=== PATIENT | female | born 2000 | race Hispanic/Latino ===

== ENCOUNTER 2020-07-16 13:57 | Emergency (ER) | payer MEDICAID | END 2020-07-16 15:11 | disposition left against medical advice (07) | LOC: EDH 13:57 | DX: R07.89 Other chest pain (principal); R55 Syncope and collapse | CPT/HCPCS: 93005 ==

== ENCOUNTER 2020-07-18 10:17 | Emergency (ER) | payer MEDICAID ==
[2020-07-18 11:17] LABS: BASOPHILS % (AUTO) 0.5 % (0.0-5.0); EOSINOPHILS % (AUTO) 1.9 % (0.0-8.0); HEMATOCRIT 39.3 % (36-48); LYMPHOCYTES % (AUTO) 34.9 % (21.0-51.0); MEAN CORPUSCULAR HEMOGLOBIN 30.3 pg (27.0-33.0); MEAN CORPUSCULAR HGB CONC 34.4 g/dL (32.0-36.0); MEAN CORPUSCULAR VOLUME 88.1 fL (80-100); MONOCYTES % (AUTO) 5.8 % (3.0-13.0); NEUTROPHILS % (AUTO) 56.7 % (40.0-77.0); PLATELET COUNT (AUTO) 211 K/uL (130-400); RED BLOOD CELL COUNT(AUTO) 4.46 MIL/uL (4.00-5.50); RED CELL DISTRIBUTION WIDTH 11.8 % (11.0-15.5); WHITE BLOOD COUNT (AUTO) 6.4 K/uL (4.8-10.8)
[2020-07-18 11:25] LABS: CREATININE 0.7 mg/dL (0.5-1.5); POTASSIUM 3.5 mmol/L (3.5-5.1)
[2020-07-18 11:28] LABS: AMPHET/METH SCREEN,URINE NEGATIVE (NEGATIVE); BARBITURATE SCREEN, URINE NEGATIVE (NEGATIVE); BENZODIAZEPINES SCREEN,URINE NEGATIVE (NEGATIVE); CANNABINOID SCREEN,URINE NEGATIVE (NEGATIVE); COCAINE SCREEN,URINE NEGATIVE (NEGATIVE); OPIATE SCREEN,URINE NEGATIVE (NEGATIVE); PHENCYCLIDINE SCREEN,URINE NEGATIVE (NEGATIVE)
[2020-07-18 11:29] LABS: ALBUMIN 4.3 g/dL (3.5-5.0); BILIRUBIN,TOTAL 0.7 mg/dL (0.2-1.0)
[2020-07-18 11:48] LABS: INR 0.99 (0.85-1.15); PARTIAL THROMBOPLASTIN TIME 26.1 SEC (26.3-35.5); PROTHROMBIN TIME 10.7 SEC (9.6-11.6)
== END 2020-07-18 12:33 | disposition home or self-care (01) ==
LOC: EDH 10:17
DX: R07.89 Other chest pain (principal); K21.9 Gastro-esophageal reflux disease without esophagitis; R10.10 Upper abdominal pain, unspecified; R13.10 Dysphagia, unspecified; R11.0 Nausea
CPT/HCPCS: 36415; 71045; 74240; 80053; 80305; 82550; 84484; 85025; 85610; 85730; 93005

== ENCOUNTER → 2020-07-18 | Outpatient (CLI) | payer MEDICAID | END | disposition home or self-care (01) | LOC: RAH 08:44 → EDUNIT# 09:00 | PROVIDERS: ATTEND Internal Medicine | DX: K21.9 Gastro-esophageal reflux disease without esophagitis (principal); R13.10 Dysphagia, unspecified | CPT/HCPCS: 74240 ==

== ENCOUNTER 2020-07-23 18:17 | Emergency (ER) | payer MEDICAID ==
[2020-07-23 18:56] LABS: BASOPHILS % (AUTO) 0.4 % (0.0-5.0); EOSINOPHILS % (AUTO) 2.3 % (0.0-8.0); HEMATOCRIT 39.6 % (36-48); LYMPHOCYTES % (AUTO) 37.2 % (21.0-51.0); MEAN CORPUSCULAR HEMOGLOBIN 29.9 pg (27.0-33.0); MEAN CORPUSCULAR HGB CONC 33.6 g/dL (32.0-36.0); MONOCYTES % (AUTO) 6.6 % (3.0-13.0); NEUTROPHILS % (AUTO) 53.4 % (40.0-77.0); PLATELET COUNT (AUTO) 207 K/uL (130-400); RED BLOOD CELL COUNT(AUTO) 4.45 MIL/uL (4.00-5.50); RED CELL DISTRIBUTION WIDTH 11.7 % (11.0-15.5); WHITE BLOOD COUNT (AUTO) 7.7 K/uL (4.8-10.8)
[2020-07-23 19:17] LABS: CREATININE 0.7 mg/dL (0.5-1.5); POTASSIUM 3.4 mmol/L (3.5-5.1)
[2020-07-23 19:19] LABS: APPEARANCE,URINE Clear (CLEAR); BILIRUBIN,URINE Negative (NEGATIVE); COLOR,URINE Yellow (YELLOW); GLUCOSE, URINE (UA) Negative (NEGATIVE); KETONES,URINE 15 mg/dL (NEGATIVE); LEUKOCYTE ESTERASE ,URINE Trace (NEGATIVE); NITRATE,URINE Negative (NEGATIVE); OCCULT BLOOD,URINE Trace (NEGATIVE); PROTEIN,URINE Negative (NEGATIVE); UROBILINOGEN,URINE 0.2 mg/dL (0.2-1.0)
[2020-07-23 19:21] LABS: ALBUMIN 4.4 g/dL (3.5-5.0); BILIRUBIN,TOTAL 1.2 mg/dL (0.2-1.0); TOTAL PROTEIN, SERUM 8.4 g/dL (6.0-8.3)
[2020-07-23 19:45] LABS: BACTERIA,URINE Few /HPF (None Seen); RBC,URINE None Seen /HPF (0-1); SQUAMOUS EPITHELIAL CELL,UR Rare /HPF (0-2); WBC,URINE 0-1 /HPF (0-1)
[2020-07-23] MEDS ORDERED: ONDANSETRON HCL 4 MG/2 ML VIAL ONE (19:45)
[2020-07-23 19:46] LABS: AMORPHOUS SEDIMENT,UR Few /LPF (None Seen)
[2020-07-23] MEDS ORDERED: MORPHINE SULFATE 2 MG/ML 1ML SYG ONE (19:46)
[2020-07-23] MEDS ORDERED: DIATR MEGLU/DIATRIZOATE SODIUM 30 ML BOTTLE ONE (19:52)
[2020-07-23 20:00] LABS: INR 1.03 (0.85-1.15); PARTIAL THROMBOPLASTIN TIME 26.4 SEC (26.3-35.5); PROTHROMBIN TIME 11.1 SEC (9.6-11.6)
== END 2020-07-23 22:31 | disposition home or self-care (01) ==
LOC: EDH 18:17
DX: R07.89 Other chest pain (principal)
CPT/HCPCS: 36415; 71045; 71250; 74150; 80053; 81001; 81025; 82550; 84484; 85025; 85610; 85730; 93005; 96374; 99285; J2405; Q9963

== ENCOUNTER 2020-08-30 16:34 | Emergency (ER) | payer MEDICAID ==
[2020-08-30] MEDS ORDERED: ONDANSETRON ODT 4 MG TAB ONE (17:09)
[2020-08-30] MEDS ORDERED: LIDOCAINE HCL 2% VISCOUS 15 ML UDCUP ONE (18:44)
[2020-08-30] MEDS ORDERED: MAG HYDROX/AL HYDROX/SIMETH ES 30 ML SUSP UDCUP ONE (18:45)
[2020-08-30] MEDS ORDERED: PANTOPRAZOLE SODIUM 40 MG TABLET.DR ONE (18:45)
[2020-08-30 19:16] LABS: CREATININE 0.7 mg/dL (0.5-1.5); CRP QUANTITATIVE 2.2 mg/L (0.00-9.0); POTASSIUM 3.6 mmol/L (3.5-5.1)
[2020-08-30 19:30] LABS: BASOPHILS % (AUTO) 0.5 % (0.0-5.0); EOSINOPHILS % (AUTO) 2.5 % (0.0-8.0); HEMATOCRIT 40.8 % (36-48); LYMPHOCYTES % (AUTO) 37.9 % (21.0-51.0); MEAN CORPUSCULAR HEMOGLOBIN 29.9 pg (27.0-33.0); MEAN CORPUSCULAR HGB CONC 33.3 g/dL (32.0-36.0); MEAN CORPUSCULAR VOLUME 89.7 fL (80-100); MONOCYTES % (AUTO) 5.9 % (3.0-13.0); PLATELET COUNT (AUTO) 193 K/uL (130-400); RED BLOOD CELL COUNT(AUTO) 4.55 MIL/uL (4.00-5.50); WHITE BLOOD COUNT (AUTO) 6.4 K/uL (4.8-10.8)
== END 2020-08-30 19:53 | disposition home or self-care (01) ==
LOC: EDH 16:34
DX: K21.00 Gastro-esophageal reflux disease with esophagitis, without bleeding (principal); M25.511 Pain in right shoulder; R07.89 Other chest pain; J45.909 Unspecified asthma, uncomplicated; Z98.890 Other specified postprocedural states
CPT/HCPCS: 36415; 71045; 72125; 73030; 74018; 80048; 81025; 84484; 85025; 86140; 93005

== ENCOUNTER 2020-10-07 08:51 | Emergency (ER) | payer MEDICAID ==
[2020-10-07 09:18] LABS: APPEARANCE,URINE Clear (CLEAR); BILIRUBIN,URINE Negative (NEGATIVE); COLOR,URINE Yellow (YELLOW); GLUCOSE, URINE (UA) Negative (NEGATIVE); KETONES,URINE Negative (NEGATIVE); LEUKOCYTE ESTERASE ,URINE Negative (NEGATIVE); NITRATE,URINE Negative (NEGATIVE); OCCULT BLOOD,URINE Negative (NEGATIVE); PROTEIN,URINE Negative (NEGATIVE); UROBILINOGEN,URINE 0.2 mg/dL (0.2-1.0)
[2020-10-07 09:23] LABS: HCG,QUAL RESULT NEGATIVE (NEGATIVE)
[2020-10-07] MEDS ORDERED: METOCLOPRAMIDE 10 MG/2 ML VIAL ONE (09:34)
[2020-10-07] MEDS ORDERED: DiphenhydrAMINE HCL 50 MG/ML VIAL ONE (09:35)
[2020-10-07] MEDS ORDERED: SODIUM CHLORIDE 0.9% 1000ML 1,000 ML IV ONE (09:37)
[2020-10-07 09:41] LABS: BASOPHILS % (AUTO) 0.6 % (0.0-5.0); EOSINOPHILS % (AUTO) 4.1 % (0.0-8.0); HEMATOCRIT 41.5 % (36-48); LYMPHOCYTES % (AUTO) 41.4 % (21.0-51.0); MEAN CORPUSCULAR HEMOGLOBIN 30.1 pg (27.0-33.0); MEAN CORPUSCULAR VOLUME 88.5 fL (80-100); MONOCYTES % (AUTO) 7.8 % (3.0-13.0); NEUTROPHILS % (AUTO) 45.9 % (40.0-77.0); PLATELET COUNT (AUTO) 198 K/uL (130-400); RED BLOOD CELL COUNT(AUTO) 4.69 MIL/uL (4.00-5.50); RED CELL DISTRIBUTION WIDTH 11.9 % (11.0-15.5); WHITE BLOOD COUNT (AUTO) 5.4 K/uL (4.8-10.8)
== END 2020-10-07 11:47 | disposition home or self-care (01) ==
LOC: EDH 08:51
DX: R42 Dizziness and giddiness (principal); R51.9 Headache, unspecified; J45.909 Unspecified asthma, uncomplicated; Z98.890 Other specified postprocedural states
CPT/HCPCS: 36415; 70450; 81003; 81025; 85025; 96360; 96361; 99284; J1200; J2765; J7030

== ENCOUNTER 2020-11-21 21:12 | Emergency (ER) | payer MEDICAID | END 2020-11-21 22:07 | disposition home or self-care (01) | LOC: EDH 21:12 | DX: T17.208A Unspecified foreign body in pharynx causing other injury, initial encounter (principal); J45.909 Unspecified asthma, uncomplicated; Z98.890 Other specified postprocedural states; X58.XXXA Exposure to other specified factors, initial encounter; Y93.89 Activity, other specified; Y92.89 Other specified places as the place of occurrence of the external cause; Y99.8 Other external cause status | CPT/HCPCS: 99281 ==

== ENCOUNTER 2021-01-05 14:42 | Emergency (ER) | payer MEDICAID ==
[2021-01-05 15:19] LABS: BASOPHILS % (AUTO) 0.4 % (0.0-5.0); HEMATOCRIT 36.7 % (36-48); LYMPHOCYTES % (AUTO) 33.5 % (21.0-51.0); MEAN CORPUSCULAR HEMOGLOBIN 29.5 pg (27.0-33.0); MEAN CORPUSCULAR HGB CONC 33.2 g/dL (32.0-36.0); MEAN CORPUSCULAR VOLUME 88.9 fL (80-100); MONOCYTES % (AUTO) 7.1 % (3.0-13.0); NEUTROPHILS % (AUTO) 55.9 % (40.0-77.0); PLATELET COUNT (AUTO) 232 K/uL (130-400); RED BLOOD CELL COUNT(AUTO) 4.13 MIL/uL (4.00-5.50); WHITE BLOOD COUNT (AUTO) 8.4 K/uL (4.8-10.8)
[2021-01-05] MEDS ORDERED: LORAZEPAM 1 MG TABLET ONE (15:39)
[2021-01-05 15:40] LABS: CREATININE 0.7 mg/dL (0.5-1.5); POTASSIUM 3.4 mmol/L (3.5-5.1)
[2021-01-05] MEDS ORDERED: DIAZEPAM 5 MG TABLET ONE (15:43)
[2021-01-05 15:54] LABS: ALBUMIN 3.9 g/dL (3.5-5.0); BILIRUBIN,TOTAL 0.6 mg/dL (0.2-1.0); TOTAL PROTEIN, SERUM 7.5 g/dL (6.0-8.3)
[2021-01-05 16:59] LABS: APPEARANCE,URINE Clear (CLEAR); BILIRUBIN,URINE Negative (NEGATIVE); COLOR,URINE Yellow (YELLOW); GLUCOSE, URINE (UA) Negative (NEGATIVE); KETONES,URINE Negative (NEGATIVE); LEUKOCYTE ESTERASE ,URINE Negative (NEGATIVE); NITRATE,URINE Negative (NEGATIVE); OCCULT BLOOD,URINE Negative (NEGATIVE); PROTEIN,URINE Negative (NEGATIVE); UROBILINOGEN,URINE 0.2 mg/dL (0.2-1.0)
[2021-01-05 17:02] LABS: HCG,QUAL RESULT NEGATIVE (NEGATIVE)
== END 2021-01-05 17:42 | disposition home or self-care (01) ==
LOC: EDH 14:42
DX: F41.1 Generalized anxiety disorder (principal); F41.0 Panic disorder [episodic paroxysmal anxiety]; R42 Dizziness and giddiness; J45.909 Unspecified asthma, uncomplicated
CPT/HCPCS: 36415; 80053; 81003; 81025; 84702; 85025; 93005

== ENCOUNTER 2021-01-16 08:04 | Emergency (ER) | payer MEDICAID ==
[2021-01-16 08:43] LABS: BASOPHILS % (AUTO) 0.4 % (0.0-5.0); EOSINOPHILS % (AUTO) 3.1 % (0.0-8.0); HEMATOCRIT 37.4 % (36-48); MEAN CORPUSCULAR HEMOGLOBIN 30.2 pg (27.0-33.0); MEAN CORPUSCULAR HGB CONC 33.2 g/dL (32.0-36.0); MONOCYTES % (AUTO) 7.8 % (3.0-13.0); NEUTROPHILS % (AUTO) 56.5 % (40.0-77.0); PLATELET COUNT (AUTO) 185 K/uL (130-400); RED BLOOD CELL COUNT(AUTO) 4.11 MIL/uL (4.00-5.50); WHITE BLOOD COUNT (AUTO) 5.5 K/uL (4.8-10.8)
[2021-01-16 08:53] LABS: CREATININE 0.6 mg/dL (0.5-1.5); POTASSIUM 3.7 mmol/L (3.5-5.1)
[2021-01-16 08:53] LABS: APPEARANCE,URINE Clear (CLEAR); BILIRUBIN,URINE Negative (NEGATIVE); COLOR,URINE Yellow (YELLOW); GLUCOSE, URINE (UA) Negative (NEGATIVE); KETONES,URINE Negative (NEGATIVE); LEUKOCYTE ESTERASE ,URINE Trace (NEGATIVE); NITRATE,URINE Negative (NEGATIVE); OCCULT BLOOD,URINE Negative (NEGATIVE); PH,URINE 6.5 (5.0-8.0); PROTEIN,URINE Negative (NEGATIVE); UROBILINOGEN,URINE 0.2 mg/dL (0.2-1.0)
[2021-01-16 08:57] LABS: HCG,QUAL RESULT NEGATIVE (NEGATIVE)
[2021-01-16 08:59] LABS: BACTERIA,URINE Rare /HPF (None Seen); RBC,URINE 0-1 /HPF (0-1); SQUAMOUS EPITHELIAL CELL,UR Few /HPF (0-2); WBC,URINE 0-1 /HPF (0-1)
[2021-01-16 09:32] LABS: ALBUMIN 3.9 g/dL (3.5-5.0); BILIRUBIN,DIRECT 0.1 mg/dL (0.0-0.3); BILIRUBIN,TOTAL 0.8 mg/dL (0.2-1.0); TOTAL PROTEIN, SERUM 7.6 g/dL (6.0-8.3)
[2021-01-16] MEDS ORDERED: ACETAMINOPHEN 325 MG TAB ONE (09:33)
[2021-01-16] MEDS ORDERED: SODIUM CHLORIDE 0.9% 500ML 500 ML IV ONE (09:34)
[2021-01-16 10:03] LABS: AMPHET/METH SCREEN,URINE NEGATIVE (NEGATIVE); BARBITURATE SCREEN, URINE NEGATIVE (NEGATIVE); BENZODIAZEPINES SCREEN,URINE NEGATIVE (NEGATIVE); CANNABINOID SCREEN,URINE NEGATIVE (NEGATIVE); COCAINE SCREEN,URINE NEGATIVE (NEGATIVE); OPIATE SCREEN,URINE NEGATIVE (NEGATIVE); PHENCYCLIDINE SCREEN,URINE NEGATIVE (NEGATIVE)
== END 2021-01-16 10:56 | disposition home or self-care (01) ==
LOC: EDH 08:04
DX: R42 Dizziness and giddiness (principal); R00.2 Palpitations; R53.1 Weakness; J45.909 Unspecified asthma, uncomplicated; F41.9 Anxiety disorder, unspecified; Z98.890 Other specified postprocedural states; Z79.899 Other long term (current) drug therapy
CPT/HCPCS: 36415; 80048; 80076; 80305; 81001; 81025; 84443; 85025; 93005; 96360; 99284; J7040

== ENCOUNTER 2021-01-28 19:22 | Emergency (ER) | payer MEDICAID ==
[~2021-01-28] VITALS: Ht 160 cm; Wt 69.4 kg
[2021-01-28 20:23] VITALS: BP 101/76
== END 2021-01-28 21:27 | disposition home or self-care (01) ==
LOC: EDH 19:22
DX: H92.02 Otalgia, left ear (principal); N89.8 Other specified noninflammatory disorders of vagina; L29.2 Pruritus vulvae; R51.9 Headache, unspecified; R42 Dizziness and giddiness
CPT/HCPCS: 99281

== ENCOUNTER 2021-01-30 21:34 | Emergency (ER) | payer MEDICAID ==
[~2021-01-30] VITALS: Ht 157.5 cm; Wt 74.8 kg
[2021-01-30] MEDS ORDERED: FAMOTIDINE 20MG TAB 20 MG TAB PO SCH (22:30)
[2021-01-30] MEDS ORDERED: PANTOPRAZOLE SODIUM 40 MG TABLET.DR PO SCH (22:30)
[2021-01-30] MEDS ORDERED: LIDOCAINE HCL 2% VISCOUS 15 ML UDCUP PO SCH (22:30)
[2021-01-30] MEDS ORDERED: MAG HYDROX/AL HYDROX/SIMETH ES 30 ML SUSP UDCUP PO SCH (22:30)
[2021-01-30] MEDS ORDERED: DICY20TA2 PO (22:36)
[2021-01-30] MEDS ORDERED: METO-296 PO (22:36)
[2021-01-30] MEDS ORDERED: PANT40TA PO (22:36)
[2021-01-30] MEDS ORDERED: ONDA4TAB10 PO (22:36)
[2021-01-30 23:05] VITALS: BP 117/69
[2021-01-30] MEDS: DICYCLOMINE HCL 10 MG/ML 2ML AMP IM SCH ×2 (23:26→23:27)
[2021-01-31] MEDS ORDERED: ONDA4TAB10 PO (07:44)
== END 2021-01-30 23:33 | disposition home or self-care (01) ==
LOC: EDH 21:34
DX: K21.9 Gastro-esophageal reflux disease without esophagitis (principal); K22.4 Dyskinesia of esophagus; Z79.899 Other long term (current) drug therapy
CPT/HCPCS: 96372; 99284; J0500

== ENCOUNTER 2021-01-31 04:55 | Emergency (ER) | payer MEDICAID ==
[~2021-01-31] VITALS: Ht 160 cm; Wt 69.4 kg
[~2021-01-31 04:55] MED LIST: DICY20TA2 PO; METO-296 PO; ONDA4TAB10 PO; PANT40TA PO
[2021-01-31 04:58] VITALS: BP 103/68
[2021-01-31] MEDS: SODIUM CHLORIDE 0.9% 1000ML 1,000 ML IV SCH ×2 (05:24→06:34)
[2021-01-31] MEDS: ONDANSETRON HCL 4 MG/2 ML VIAL IVP SCH ×2 (05:25→06:34)
[2021-01-31] MEDS: METOCLOPRAMIDE 10 MG/2 ML VIAL IVP SCH ×2 (05:25→06:35)
[2021-01-31] MEDS: KETOROLAC 30MG VIAL (30MG/ML) IVP SCH ×4 (05:25→06:39)
[2021-01-31] MEDS: PANTOPRAZOLE 40 MG/VIAL IVP SCH ×2 (05:25→06:34)
[2021-01-31] MEDS ORDERED: DiphenhydrAMINE HCL 50 MG/ML VIAL IV SCH (05:30)
[2021-01-31 05:36] LABS: APPEARANCE,URINE Clear (CLEAR); BILIRUBIN,URINE Negative (NEGATIVE); COLOR,URINE Yellow (YELLOW); GLUCOSE, URINE (UA) Negative (NEGATIVE); KETONES,URINE Negative (NEGATIVE); LEUKOCYTE ESTERASE ,URINE Trace (NEGATIVE); NITRATE,URINE Negative (NEGATIVE); OCCULT BLOOD,URINE Large (NEGATIVE); PROTEIN,URINE Negative (NEGATIVE); UROBILINOGEN,URINE 0.2 mg/dL (0.2-1.0)
[2021-01-31 05:39] LABS: HCG,QUAL RESULT NEGATIVE (NEGATIVE)
[2021-01-31 05:46] LABS: BASOPHILS % (AUTO) 0.2 % (0.0-5.0); EOSINOPHILS % (AUTO) 0.6 % (0.0-8.0); LYMPHOCYTES % (AUTO) 20.6 % (21.0-51.0); MEAN CORPUSCULAR HEMOGLOBIN 30.5 pg (27.0-33.0); MEAN CORPUSCULAR HGB CONC 34.1 g/dL (32.0-36.0); MEAN CORPUSCULAR VOLUME 89.6 fL (80-100); MONOCYTES % (AUTO) 5.7 % (3.0-13.0); NEUTROPHILS % (AUTO) 72.7 % (40.0-77.0); PLATELET COUNT (AUTO) 222 K/uL (130-400); RED BLOOD CELL COUNT(AUTO) 4.13 MIL/uL (4.00-5.50); RED CELL DISTRIBUTION WIDTH 11.9 % (11.0-15.5); WHITE BLOOD COUNT (AUTO) 8.1 K/uL (4.8-10.8)
[2021-01-31 05:55] LABS: CREATININE 0.6 mg/dL (0.5-1.5); POTASSIUM 3.6 mmol/L (3.5-5.1)
[2021-01-31 05:59] LABS: BILIRUBIN,TOTAL 0.5 mg/dL (0.2-1.0); TOTAL PROTEIN, SERUM 7.8 g/dL (6.0-8.3)
[2021-01-31 06:41] VITALS: BP 124/76
[2021-01-31 07:06] LABS: BACTERIA,URINE Few /HPF (None Seen); SQUAMOUS EPITHELIAL CELL,UR 0-2 /HPF (0-2); WBC,URINE 0-1 /HPF (0-1)
[2021-01-31] MEDS ORDERED: ONDA4TAB10 PO (07:44)
[2021-01-31 08:05] VITALS: BP 106/64
== END 2021-01-31 08:40 | disposition home or self-care (01) ==
LOC: EDH 04:55
DX: R51.9 Headache, unspecified (principal); R11.2 Nausea with vomiting, unspecified; R00.2 Palpitations; Z79.899 Other long term (current) drug therapy
CPT/HCPCS: 36415; 80053; 81001; 81025; 83690; 85025; 96361; 96374; 96375; 99284; C9113; J1200; J1885; J2405; J2765; J7030; 96365

== ENCOUNTER 2021-03-31 02:49 | Emergency (ER) | payer MEDICAID ==
[~2021-03-31] VITALS: Ht 154.9 cm; Wt 62.6 kg
[2021-03-31 02:51] VITALS: BP 122/66
[2021-03-31 03:07] LABS: APPEARANCE,URINE Turbid (CLEAR); BILIRUBIN,URINE Negative (NEGATIVE); COLOR,URINE Yellow (YELLOW); GLUCOSE, URINE (UA) Negative (NEGATIVE); KETONES,URINE >=80 mg/dL (NEGATIVE); LEUKOCYTE ESTERASE ,URINE Large (NEGATIVE); NITRATE,URINE Negative (NEGATIVE); OCCULT BLOOD,URINE Large (NEGATIVE); PROTEIN,URINE POS 1+ mg/dL (NEGATIVE)
[2021-03-31 03:14] LABS: HCG,QUAL RESULT NEGATIVE (NEGATIVE)
[2021-03-31 03:16] LABS: BACTERIA,URINE Rare /HPF (None Seen); SQUAMOUS EPITHELIAL CELL,UR Rare /HPF (0-2); WBC,URINE 51-100 /HPF (0-1)
[2021-03-31] MEDS ORDERED: CEFTRIAXONE 1G VIAL IM STA (03:16)
[2021-03-31] MEDS ORDERED: LACTATED RINGERS 1000ML 1,000 ML IV ONE (03:30)
[2021-03-31] MEDS ORDERED: PHENAZOPYRIDINE HCL 200 MG TABLET PO ONE (03:30)
[2021-03-31] MEDS ORDERED: LIDOCAINE HCL-MPF 1% 2ML VIAL ONE (04:20)
[2021-03-31] MEDS ORDERED: CEFTRIAXONE 1G VIAL ONE (04:20)
[2021-03-31] MEDS ORDERED: CEFU500T67 PO (05:44)
[2021-03-31 05:55] VITALS: BP 120/60
== END 2021-03-31 05:56 | disposition home or self-care (01) ==
LOC: EDH 02:49
DX: N39.0 Urinary tract infection, site not specified (principal); F41.9 Anxiety disorder, unspecified; Z79.899 Other long term (current) drug therapy; Z98.890 Other specified postprocedural states
CPT/HCPCS: 81001; 81025; 87088; 96372; 99283; J0696; J3490

== ENCOUNTER 2021-06-15 01:35 | Emergency (ER) | payer MEDICAID ==
[~2021-06-15] VITALS: Ht 154.9 cm; Wt 56.2 kg
[~2021-06-15 01:35] MED LIST changes: +CEFU500T67 PO
[2021-06-15 01:57] LABS: APPEARANCE,URINE Clear (CLEAR); BILIRUBIN,URINE Negative (NEGATIVE); COLOR,URINE Yellow (YELLOW); GLUCOSE, URINE (UA) Negative (NEGATIVE); KETONES,URINE Negative (NEGATIVE); LEUKOCYTE ESTERASE ,URINE Trace (NEGATIVE); NITRATE,URINE Negative (NEGATIVE); OCCULT BLOOD,URINE Negative (NEGATIVE); PH,URINE 6.5 (5.0-8.0); PROTEIN,URINE Negative (NEGATIVE); UROBILINOGEN,URINE 0.2 mg/dL (0.2-1.0)
[2021-06-15 02:11] LABS: RBC,URINE None Seen /HPF (0-1)
[2021-06-15 02:12] LABS: BACTERIA,URINE None Seen /HPF (None Seen); SQUAMOUS EPITHELIAL CELL,UR Few /HPF (0-2)
[2021-06-15 02:13] LABS: HCG,QUAL RESULT NEGATIVE (NEGATIVE)
[2021-06-15] MEDS ORDERED: ONDANSETRON ODT 4MG TAB ONE (02:24)
[2021-06-15] MEDS ORDERED: ONDANSETRON ODT 4MG TAB SL ONE (02:30)
[2021-06-15 03:06] VITALS: BP 105/57
== END 2021-06-15 03:24 | disposition home or self-care (01) ==
LOC: EDH 01:35
DX: R00.0 Tachycardia, unspecified (principal); R11.0 Nausea; J45.909 Unspecified asthma, uncomplicated; Z79.899 Other long term (current) drug therapy
CPT/HCPCS: 81001; 81025; 93005

== ENCOUNTER 2021-08-09 07:25 | Emergency (ER) | payer MEDICAID ==
[~2021-08-09] VITALS: Ht 154.9 cm; Wt 53.1 kg
[2021-08-09] MEDS ORDERED: ALBUTEROL 0.083% 2.5 MG/3 ML INH IH SCH (08:30)
[2021-08-09 08:34] VITALS: BP 101/67
[2021-08-09] MEDS ORDERED: ALBUHFA IH (09:11)
== END 2021-08-09 09:26 | disposition home or self-care (01) ==
LOC: EDH 07:25
DX: J06.9 Acute upper respiratory infection, unspecified (principal); J45.909 Unspecified asthma, uncomplicated; K21.9 Gastro-esophageal reflux disease without esophagitis; Z79.899 Other long term (current) drug therapy; Z87.19 Personal history of other diseases of the digestive system
CPT/HCPCS: 71045; 93005; 94640

== ENCOUNTER 2024-07-23 02:24 | Emergency (ER) | payer SELFPAY ==
[~2024-07-23] VITALS: Ht 157.5 cm; Wt 63.5 kg
[~2024-07-23 02:24] MED LIST changes: +ALBUHFA IH; +ONDA-243 PO; -ONDA4TAB10 PO
--- NOTE | 2024-07-23 02:28 | NUR ---
COVID AND FLU SWABS COLLECTED UA CUP PROVIDED
[2024-07-23 02:57] LABS: SARS-CoV-2, RNA, NAAT NEGATIVE SARS CoV-2 (NEGATIVE)
[2024-07-23 03:06] LABS: INFLUENZA TYPE A Negative For Type A (NEGATIVE); INFLUENZA TYPE B Negative For Type B (NEGATIVE)
--- NOTE | 2024-07-23 03:26 | NUR ---
PATIENT REFUSED LAB DRAW
--- NOTE | 2024-07-23 03:31 | ERN ---
General Chief Complaint: Multiple Complaints Stated Complaint: COUGH, NAUSEA, LIGHTHEADED, CP Time Seen by MD: 02:35 History of Present Illness Initial Comments Mrs Grissom is a 24-year-old female significant past medical history of asthma who presents today with a chief complaint of shortness of breath and chest tightness. Patient she had symptoms starting at 9:00 a.m.. She reports she took her child's albuterol medication but unfortunately did not have any relief. Patient denies any triggers or ongoing events. She feels like she may have a cold. Allergies: Coded Allergies: No Known Allergies (Unverified Allergy, Unknown, 07/24/20) Home Meds Active Scripts Albuterol Sulfate (Ventolin Hfa/Proventil Hfa/Proair Hfa) 90 Mcg/Puff Puff, 1-2 PUFF IH Q4H PRN for SHORTNESS OF BREATH for 5 Days, #1 INH 0 Refills PHARMACY TO DISPENSE 1 INHALER FOR USE Prov:TREVOR LAGNUA MD 08/09/21 Cefuroxime Axetil (Cefuroxime) 500 Mg Tablet, 500 MG PO BID for 10 Days, #20 TAB 0 Refills Prov:MICHELLE MARTIN MD 03/31/21 Ondansetron (Ondansetron Odt) 4 Mg Tab.rapdis, 4 MG PO Q6HPRN, #20 TAB 0 Refills Prov:DILSHAD YUSUF MD 01/31/21 Metoclopramide HCl (Reglan) 10 Mg Tablet, 10 MG PO TIDP, #20 TAB 0 Refills Prov:DILSHAD YUSUF MD 01/30/21 Pantoprazole Sodium (Protonix) 40 Mg Tablet.dr, 40 MG PO DAILYBKFST, #20 TAB 0 Refills Prov:DILSHAD YUSUF MD 01/30/21 Ondansetron (Ondansetron Odt) 4 Mg Tab.rapdis, 4 MG PO Q6HPRN, #20 TAB 0 Refills Prov:DILSHAD YUSUF MD 01/30/21 Dicyclomine HCl (Bentyl) 20 Mg Tab, 20 MG PO Q6HPRN, #20 TAB 0 Refills Prov:DILSHAD YUSUF MD 01/30/21 Past Medical History Past Medical History: Asthma, GERD Medical History Other: GASTRITIS Past Surgical History: None Surgical History Other: Family History Family History: Negative Social History Social History: Negative, Other Female( History) LMP: Jul 07, 2024 ROS Dictation Constitutional: Negative for fever,chills, and weight loss Eyes: Negative for injury, pain,redness, and discharge ENT: Negative for injury,pain or swelling Cardiovascular: Negative for chest pain, palpitations, and edema Respiratory: Positive for cough Abdomen/GI: Negative for abdominal pain, nausea, vomiting, diarrhea, and constipation Back: Negative for injury and pain : Negative for injury, bleeding and discharge MS/Extremity: Negative for injury and deformity Skin: Negative for rash, and discoloration Neuro: Negative for headache, weakness, numbness, tingling, and seizure Psych: Negative for suicide ideation, homicidal ideation, and hallucinations Physical Exam Physical Exam Dictation General: awake, alert, NAD Head/Face: Normocephalic, atraumatic Eyes: PERRL, EOMI, vision at baseline ENT: oral cavity clear Neck: Trachea midline, supple Cardiovascular: RRR, normal S1/S2, No MRGs, no JVD Respiratory: CTAB, no respiratory distress, No rales or wheezes Abdomen: Soft, non-tender, non-distended, normal bowel sounds, no guarding or rebound. Skin: Warm, dry, normal turgor, no rash MS/Extremity: Pulses equal, no cyanosis, neurovascular intact, FROM Neuro: COAx4, GCS 15, strength 5/5, CN 2-12 intact, normal cerebellar exam, normal gait, Psych: Normal behavior, mood, and affect normal Results Laboratory and Microbiology Lab and Micro Result Laboratory Tests Test 07/23/24 02:28 Influenza Type A Antigen Negative For Type A Influenza Type B Antigen Negative For Type B SARS-CoV-2, RNA, NAAT NEGATIVE SARS CoV-2 MDM Patient was had improvement with her breathing treatments and steroids. Patient will be discharged with outpatient treatment MDM: Differential diagnosis: Asthma exacerbation Rationale: Tests considered and ordered secondary to shared decision making include: Previous outside records reviewed: Old ER visits. Risk of complication and/or morbidity or mortality of patient management: None Medications-Per medication reconciliation Need for hospitalization: Patient does not meet criteria for hospitalization. Need for emergency major/minor surgery: No There are no social concerns with this patient. Prescription drug management Prescriptions will include symptomatic care Patient's prior external medical records from other ER visits were reviewed by me as indicated. Prior testing and results from previous visits were reviewed. Prior tests were taken into account with medical decision making and resource utilization, independent historian/historians were used to obtain complete medical history. I independently interpreted the test that were performed, results were reviewed by me and considered findings on radiology if ordered. Medical management and examination interpretation discussions were had by me with other qualified healthcare professionals as indicated for the patient's care. ED Course Orders Procedure Category Date Status Time Urinalysis Profile LAB 07/23/24 Logged 02:27 Testing, LAB 07/23/24 Logged Serum Hcg 02:27 Covid Rna Naat LAB 07/23/24 Complete 02:27 Influenza Type A & B, LAB 07/23/24 Complete Rapid 02:27 12 Lead Ekg Tracing- EKG 07/23/24 Logged Technical 02:27 Troponin I High LAB 07/23/24 Logged Sensitivity 02:27 Methylprednisolone PHA 07/23/24 Complete Succ 125mg (Solu-Medr 03:30 Ipratropium/Albuterol PHA 07/23/24 Complete Neb (Duoneb) 03:30 Current Medications Medications (Trade) Dose Ordered Sig/[place] Route PRN Reason Start Time Stop Time Status Last Admin Dose Admin Albuterol (DUOneb) 1 UDVIAL ONCE ONCE IH 07/23/24 03:30 07/23/24 03:31 DC 07/23/24 03:49 Methylprednisolone Sodium Succinate (Solu-medROL 125MG) 125 mg ONCE ONCE IM 07/23/24 03:30 07/23/24 03:31 DC 07/23/24 03:41 Vital Signs Date Time Temp Pulse Resp B/P (MAP) Pulse Ox O2 Delivery O2 Flow Rate FiO2 07/23/24 03:41 88 10 07/23/24 02:25 97.2 85 16 114/75 99 Room Air DX & DISP Disposition: Discharge Departure Impression: Primary Impression: Bronchospasm Condition: Stable Scripts Albuterol Sulfate (Albuterol Sulfate) 2.5 Mg/3 Ml (0.083 %) Vial.neb 1 VIAL NEB Q4HPRN PRN for wheezing for 60 Days, #150 ML 0 Refills Prov: SARAH APPIAH MD 07/23/24 Prednisone (Prednisone) 5 Mg Tablet 40 MG PO DAILY for 5 Days, #5 TAB Prov: SARAH APPIAH MD 07/23/24 Additional Instructions: Please take steroids for the next 5 days as prescribed. Please take your albuterol nebs as needed every 4-6 hours for shortness of breath Please consider make an appointment with your primary care physician for continuance of care and continued maintenance of your asthma. Referrals: TYRA PRIETO MD (PCP) SARAH APPIAH MD Jul 23, 2024 03:31
[2024-07-23 03:41] VITALS: PULSE 88; RESP 10
[2024-07-23] MEDS: Solu-medROL 125MG VIAL IM ONE (03:41)
[2024-07-23] MEDS: IpraTROPium/alBUTERol SULFATE 3 ML SOLUTION IH ONE (03:49)
[2024-07-23] MEDS ORDERED: ALBU2.5V2 NEB (04:36)
[2024-07-23] MEDS ORDERED: PRED5TAB PO (04:36)
[2024-07-23 05:00] VITALS: BP 121/78; PULSE 90; RESP 16; TEMP 97.4; O2SAT 99
--- NOTE | 2024-07-24 07:37 | EKG ---
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
== END 2024-07-23 05:09 | disposition home or self-care (01) ==
LOC: EDH 02:24
DX: J98.01 Acute bronchospasm (principal); K21.9 Gastro-esophageal reflux disease without esophagitis; Z20.822 Contact with and (suspected) exposure to COVID-19
CPT/HCPCS: 99284; 87635; 87804 ×2; 96372; 93005; 94640; J2919

== ENCOUNTER 2024-10-01 00:08 | Emergency (ER) | payer MEDICAID ==
[~2024-10-01] VITALS: Ht 152.4 cm; Wt 61.2 kg
[~2024-10-01 00:08] MED LIST changes: +ALBU2.5V2 NEB; +PRED5TAB PO
[2024-10-01 00:09] VITALS: TEMP 98.1
--- NOTE | 2024-10-01 00:14 | NUR ---
UA CUP PROVIDED
--- NOTE | 2024-10-01 00:22 | NUR ---
UA COLLECTED AND SENT
[2024-10-01 00:41] LABS: APPEARANCE,URINE CLEAR (CLEAR); BILIRUBIN,URINE NEGATIVE (NEGATIVE); COLOR,URINE COLORLESS (YELLOW); GLUCOSE, URINE (UA) NEGATIVE (NEGATIVE); KETONES,URINE NEGATIVE (NEGATIVE); LEUKOCYTE ESTERASE ,URINE NEGATIVE Leu/uL (NEGATIVE); NITRATE,URINE NEGATIVE (NEGATIVE); OCCULT BLOOD,URINE NEGATIVE (NEGATIVE); PH,URINE 6.5 (5.0-8.0); PROTEIN,URINE NEGATIVE (NEGATIVE); UROBILINOGEN,URINE 0.2 mg/dL (0.2-1.0)
[2024-10-01 00:52] LABS: BASOPHILS # (AUTO) 0.03 K/uL (0.00-0.20); BASOPHILS % (AUTO) 0.4 % (0.0-5.0); EOSINOPHILS # (AUTO) 0.09 K/uL (0.00-0.70); EOSINOPHILS % (AUTO) 1.1 % (0.0-8.0); HEMATOCRIT 35.3 % (36-48); IMMATURE GRANULOCYTE ABSOLUTE 0.02 K/uL (0-1); LYMPHOCYTES # (AUTO) 1.8 K/uL (1.0-4.8); LYMPHOCYTES % (AUTO) 22.3 % (21.0-51.0); MEAN CORPUSCULAR HEMOGLOBIN 31.6 pg (27.0-33.0); MEAN CORPUSCULAR HGB CONC 34.8 g/dL (32.0-36.0); MEAN CORPUSCULAR VOLUME 90.7 fL (79-99); MONOCYTES # (AUTO) 0.6 K/uL (0.1-1.0); MONOCYTES % (AUTO) 7.4 % (3.0-13.0); NEUTROPHILS # (AUTO) 5.4 K/uL (1.8-7.7); NEUTROPHILS % (AUTO) 68.5 % (40.0-77.0); PLATELET COUNT (AUTO) 206 K/uL (130-400); RED BLOOD CELL COUNT(AUTO) 3.89 MIL/uL (4.00-5.50); RED CELL DISTRIBUTION WIDTH 11.9 % (11.0-15.5); WHITE BLOOD COUNT (AUTO) 7.9 K/uL (4.8-10.8)
[2024-10-01 00:56] LABS: ADD UA MICROSCOPIC NO
[2024-10-01 00:57] LABS: CREATININE 0.5 mg/dL (0.5-1.0); POTASSIUM 3.5 mmol/L (3.5-5.1)
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
[2024-10-01] MEDS: ondanSETRON 4MG INJ IVP ONE (01:40)
[2024-10-01] MEDS: 0.9%NACL 1000ML 1,000 ML IV ONE (01:40)
--- NOTE | 2024-10-01 04:07 | NUR ---
PATIENT SLEEPING, NO DISTRESS NOTED.
[2024-10-01 04:47] VITALS: BP 98/48; PULSE 72; RESP 18; O2SAT 98
[2024-10-01] MEDS: acetaMINOPHEN 325 MG TAB PO ONE (05:15)
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
== END 2024-10-01 05:17 | disposition home or self-care (01) ==
LOC: EDH 00:08
DX: O26.891 Other specified pregnancy related conditions, first trimester (principal); K21.9 Gastro-esophageal reflux disease without esophagitis; R11.10 Vomiting, unspecified; E86.0 Dehydration; R10.2 Pelvic and perineal pain; J45.909 Unspecified asthma, uncomplicated; Z79.52 Long term (current) use of systemic steroids
CPT/HCPCS: 99285; 93880; 96374; 80048; 84702; 85025; 81003; 36415; J7030; J2405

== ENCOUNTER 2025-03-08 23:46 | Emergency (ER) | payer MEDICAID ==
--- NOTE | 2025-03-09 00:12 | NUR ---
CALLED FOR PATIENT IN LOBBY X2, NO ANSWER
--- NOTE | 2025-03-09 00:19 | NUR ---
CALLED FOR PATIENT IN LOBBY, NO ANSWER X2
--- NOTE | 2025-03-09 00:33 | NUR ---
CALLED FOR PATIENT IN LOBBY, NO ANSWER X2
== END 2025-03-09 00:34 | disposition left against medical advice (07) ==
LOC: EDH 23:46
DX: O26.893 Other specified pregnancy related conditions, third trimester (principal); R10.9 Unspecified abdominal pain; R11.0 Nausea; Z53.21 Procedure and treatment not carried out due to patient leaving prior to being seen by health care provider

== ENCOUNTER → 2025-03-18 | Emergency (ER) | payer MEDICAID ==
[~2025-03-18] VITALS: Ht 157.5 cm; Wt 73.5 kg
[~2025-03-18] MED LIST changes: +AZIT250T PO
--- NOTE | 2025-03-18 00:40 | EKG ---
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
[2025-03-18 01:14] LABS: IMMATURE GRANULOCYTE ABSOLUTE 0.03 K/uL (0-1); NUCLEATED RED BLOOD CELLS 0.0 % (0.0-0.19); PLATELET COUNT (AUTO) 147 K/uL (130-400); RED BLOOD CELL COUNT(AUTO) 3.60 MIL/uL (4.00-5.50); RED CELL DISTRIBUTION WIDTH 14.7 % (11.0-15.5); WHITE BLOOD COUNT (AUTO) 7.7 K/uL (4.8-10.8)
[2025-03-18 01:16] LABS: APPEARANCE,URINE TURBID (CLEAR); GLUCOSE, URINE (UA) 70 mg/dL (NEGATIVE); LEUKOCYTE ESTERASE ,URINE NEGATIVE Leu/uL (NEGATIVE); NITRATE,URINE NEGATIVE (NEGATIVE); OCCULT BLOOD,URINE NEGATIVE (NEGATIVE)
[2025-03-18 01:18] LABS: ADD UA MICROSCOPIC NO
[2025-03-18 01:19] LABS: CREATININE 0.3 mg/dL (0.5-1.0); GLOMERULAR FILTR. RATE CALC 152.0 mL/min (>90); GLUCOSE,RANDOM 160.0 mg/dL (70-105); SODIUM SERUM 138.0 mmol/L (136-145); UREA NITROGEN, BLOOD 9.0 mg/dL (7-18)
[2025-03-18 01:46] LABS: CREATINE KINASE, TOTAL 66.0 U/L (21-232); HCG,QUANTITATIVE 7325.0 mIU/mL (0-5)
--- NOTE | 2025-03-18 02:05 | ERN ---
ED Note History of Present Illness Stated Complaint: CHEST PAIN, SOB, PELVIC PAIN Chief Complaint: OB>20 weeks gest. Time Seen by MD: 00:59 Time Seen by Midlevel: 00:59 Dictation: The patient is a 24-year-old female with a history of asthma, who is 36 weeks gestation who presents to the emergency department with complaints of shortness of breath, midsternal chest pain, onset 10:00 p.m.. Patient reports she started with a nonproductive cough yesterday. Denies any fevers. Patient reports that she has also been having lower abdominal pain, reports cramping sensation and intermediate coming every 10-15 minutes. Patient denies any vaginal bleeding or discharge. Patient reports her OB is . She is a by . Patient is to on April 13 Allergies: Coded Allergies: No Known Allergies (Unverified Allergy, Unknown, 07/24/20) Home Meds Active Scripts Albuterol Sulfate (Albuterol Sulfate) 2.5 Mg/3 Ml (0.083 %) Vial.neb, 1 VIAL NEB Q4HPRN PRN for wheezing for 60 Days, #150 ML 0 Refills Prov:SARAH APPIAH MD 07/23/24 Prednisone (Prednisone) 5 Mg Tablet, 40 MG PO DAILY for 5 Days, #5 TAB Prov:SARAH APPIAH MD 07/23/24 Albuterol Sulfate (Ventolin Hfa/Proventil Hfa/Proair Hfa) 90 Mcg/Puff Puff, 1-2 PUFF IH Q4H PRN for SHORTNESS OF BREATH for 5 Days, #1 INH 0 Refills PHARMACY TO DISPENSE 1 INHALER FOR USE Prov:TREVOR LAGUNA MD 08/09/21 Cefuroxime Axetil (Cefuroxime) 500 Mg Tablet, 500 MG PO BID for 10 Days, #20 TAB 0 Refills Prov:MICHELLE MARTIN MD 03/31/21 Ondansetron (Ondansetron Odt) 4 Mg Tab.rapdis, 4 MG PO Q6HPRN, #20 TAB 0 Refills Prov:DILSHAD YUSUF MD 01/31/21 Metoclopramide HCl (Reglan) 10 Mg Tablet, 10 MG PO TIDP, #20 TAB 0 Refills Prov:DILSHAD YUSUF MD 01/30/21 Pantoprazole Sodium (Protonix) 40 Mg Tablet.dr, 40 MG PO DAILYBKFST, #20 TAB 0 Refills Prov:DILSHAD YUSUF MD 01/30/21 Ondansetron (Ondansetron Odt) 4 Mg Tab.rapdis, 4 MG PO Q6HPRN, #20 TAB 0 Refills Prov:DILSHAD YUSUF MD 01/30/21 Dicyclomine HCl (Bentyl) 20 Mg Tab, 20 MG PO Q6HPRN, #20 TAB 0 Refills Prov:DILSHAD YUSUF MD 01/30/21 Past Medical History Past Medical History: Anemia, Asthma, GERD Additional Past Medical Hx: GASTRITIS Surgical History: Surgical History Other: Family History: Negative Social History: Negative, Other : 3 Para: 2 RN Note Reviewed/Agreed w/PFSH: Yes Review of System Dictation Constitutional: Negative for fever,chills, and weight loss Eyes: Negative for injury, pain,redness, and discharge ENT: Negative for injury,pain or swelling Cardiovascular: Negative for palpitations, and edema positive for chest pain Respiratory: Negative for and wheezing, positive for shortness of breath and cough Abdomen/GI: Negative for nausea, vomiting, diarrhea, and constipation positive for abdominal pain Back: Negative for injury and pain : Negative for injury, bleeding and discharge MS/Extremity: Negative for injury and deformity Skin: Negative for rash, and discoloration Neuro: Negative for headache, weakness, numbness, tingling, and seizure Psych: Negative for suicide ideation, homicidal ideation, and hallucinations Initial Vital Sign VS Vital Signs Date Time Temp Pulse Resp B/P (MAP) Pulse Ox O2 Delivery O2 Flow Rate FiO2 03/18/25 00:12 98.2 87 20 103/65 98 Room Air 03/18/25 01:09 0 21 Physical Exam Dictation Vital Signs reviewed General Appearance: Alert, oriented x 3, no acute distress, well developed, nourished. Head and Face: non-traumatic. Eyes: PERRL, pink conjunctivas, eyelid no trauma, anterior chamber with arcus senilis. Ears: Pinnas intact and no signs of trauma or erythema ear canals clear and no discharge TM no erythema Nose: No discharge, no bleeding. Oropharynx: Mouth normal, tongue pink. pharynx clear,no erythema, tonsils no exudates, no abscesses noted, mucous membrane moist Neck: Supple, non-tender, no thyromegaly, no masses, no JVD, no bruits Breast:Deferred Chest:No tenderness, no crepitus, no paradoxical movement, no retractions Lungs:Clear, well-ventilated, symmetric, no rales, no wheezing, no rhonchi, no stridor, good breath sounds bilaterally Heart: Regular rate, regular rhythm, no murmur, no gallops Vascular: no peripheral edema, Abdomen: For positive bowel sounds, distended, no guarding, nontender, no rebound, no masses no hepatomegaly, no splenomegaly, no Bowers's sign, no hernias. Rectal: Deferred Genital: Deferred Neurological: Normal speech, motor function intact, sensory function intact Musculoskeletal: Neck nontender, full range of motion, back nontender, full range of motion, Extremities: nontender, full range of motion Skin: Color pink, dry, no turgor, no rash, no lacerations, no abrasions, no contusions. Lymphatic: Deferred Results (Laboratory/Radiology) Laboratory/Radiology Laboratory Tests Test 03/18/25 00:47 03/18/25 01:50 White Blood Count 7.7 K/uL (4.8-10.8) Red Blood Count 3.60 MIL/uL (4.00-5.50) L Hemoglobin 11.7 g/dL (12.0-16.0) L Hematocrit 33.6 % (36-48) L Mean Corpuscular Volume 93.3 fL (79-99) Mean Corpuscular Hemoglobin 32.5 pg (27.0-33.0) Mean Corpuscular Hemoglobin Concent 34.8 g/dL (32.0-36.0) Red Cell Distribution Width 14.7 % (11.0-15.5) Platelet Count 147 K/uL (130-400) Mean Platelet Volume 12.9 fL (7.5-10.5) H Immature Granulocyte % (Auto) 0.4 % (0-1) Neutrophils (%) (Auto) 64.5 % (40.0-77.0) Lymphocytes (%) (Auto) 24.9 % (21.0-51.0) Monocytes (%) (Auto) 8.5 % (3.0-13.0) Eosinophils (%) (Auto) 1.6 % (0.0-8.0) Basophils (%) (Auto) 0.1 % (0.0-5.0) Neutrophils # (Auto) 4.9 K/uL (1.8-7.7) Lymphocytes # (Auto) 1.9 K/uL (1.0-4.8) Monocytes # (Auto) 0.7 K/uL (0.1-1.0) Eosinophils # (Auto) 0.12 K/uL (0.00-0.70) Basophils # (Auto) 0.01 K/uL (0.00-0.20) Absolute Immature Granulocyte (auto 0.03 K/uL (0-1) Nucleated Red Blood Cells 0.0 % (0.0-0.19) Urine Color LIGHT-YELLOW (YELLOW) Urine Appearance TURBID (CLEAR) Urine pH 6.5 (5.0-8.0) Urine Specific [place] 1.005 (1.001-1.031) Urine Protein NEGATIVE mg/dL (NEGATIVE) Urine Glucose (UA) 70 mg/dL (NEGATIVE) H Urine Ketones NEGATIVE mg/dL (NEGATIVE) Urine Occult Blood NEGATIVE (NEGATIVE) Urine Nitrate NEGATIVE (NEGATIVE) Urine Bilirubin NEGATIVE mg/dL (NEGATIVE) Urine Urobilinogen 0.2 mg/dL (0.2-1.0) Urine Leukocyte Esterase NEGATIVE [place]/uL Sodium Level 138 mmol/L (136-145) Potassium Level 3.5 mmol/L (3.5-5.1) Chloride Level 104 mmol/L (101-111) Carbon Dioxide Level 22 mmol/L (21-32) Blood Urea Nitrogen 9 mg/dL (7-18) Creatinine 0.3 mg/dL (0.5-1.0) L Glomerular Filtration Rate Calc 152 mL/min (>90) Random Glucose 160 mg/dL (70-105) H Total Calcium 9.0 mg/dL (8.5-10.1) Total Creatine Kinase 66 U/L (21-232) Troponin I High Sensitivity 4 ng/L (4-50) Human Chorionic Gonadotropin, Quant 7325 mIU/mL (0-5) H Influenza Type A Antigen Negative For Type A Influenza Type B Antigen Negative For Type B SARS-CoV-2 Antigen (Rapid) PRESUMPTIVE NEGATIVE REASON: pelvic pain ORDERING PHYSICIAN: YANI BONILLA PROCEDURE: OB >14 - US OB >14 WEEKS EXAM: US Obstetrical, Complete >14 weeks. CLINICAL HISTORY: Pelvic pain. TECHNIQUE: Transabdominal imaging of the maternal pelvis and a > 14-week gestation with image documentation. COMPARISON: None provided. FINDINGS: FETUS: There is a single living intrauterine gestation. POSITION: position is cephalic. HEART RATE: The heart rate is 130 beats per minute. BIOMETRICS: Based on composite biometry, the estimated gestational age by ultrasound is 35 weeks 4 days. Biparietal Diameter: 8.9 cm, corresponding to 36 weeks 0 days. Head Circumference: 33.4 cm, corresponding to 38 weeks 1 day. Abdominal circumference: 31.2 cm, corresponding to 35 weeks 1 day. Femur Length: 6.3 cm, corresponding to 32 weeks 4 days. ANATOMIC SURVEY: The visualized anatomy is unremarkable. PLACENTA: The placenta is anterior, grade 2 maturity. No sonographic evidence for previa or abruption. AMNIOTIC FLUID: Within normal limits. CERVIX: Closed. Unremarkable as visualized. IMPRESSION: Limited examination. ER protocol. Limited anatomy evaluation due to advanced gestational age and increased movements. Single viable intrauterine corresponding to gestational age of 35 weeks 4 days. No acute abnormality. /[place] Labs Reviewed?: Yes EKG: (+) rhythm (Sinus rhythm) EKG Comment: Date:03/18/2025 Time:0034 Ventricular rate:75 TX interval:165 QRS duration:72 QT/QTc:380/424 EKG interpretation: Sinus rhythm Reviewed by ED Attending no STEMI ED Course ED Course Orders Procedure Category Date Status Time Vital Signs Per CPOE 03/18/25 Transmitted Routine 00:15 12 Lead Ekg Tracing- EKG 03/18/25 Complete Technical 00:15 Oxygen By Nc/Pulse Ox CPOE 03/18/25 Transmitted 00:15 Maintain Iv CPOE 03/18/25 Transmitted 00:15 Iv Insertion CPOE 03/18/25 Transmitted 00:15 Cardiac Monitoring CPOE 03/18/25 Transmitted 00:15 Pulse Oximetry With CPOE 03/18/25 Transmitted Vs And Prn 00:15 Cbc With Differential LAB 03/18/25 Complete 00:15 Activity: Br W/Brp CPOE 03/18/25 Transmitted With Assist 00:15 Creatine Kinase, Total LAB 03/18/25 Complete 00:15 Troponin I High LAB 03/18/25 Complete Sensitivity 00:15 Urinalysis Profile LAB 03/18/25 Complete 00:15 Basic Metabolic Panel LAB 03/18/25 Complete 00:15 Covid19 (Sars Antigen LAB 03/18/25 Complete Rapid) 01:04 Influenza Type A & B, LAB 03/18/25 Complete Rapid 01:04 Acetaminophen 500mg PHA 03/18/25 Complete Tab (Tylenol 500mg T 01:30 Us Ob >14 Weeks US 03/18/25 Resulted 01:04 Abo/Rh BBK 03/18/25 In Process 01:04 Hcg,Quantitative LAB 03/18/25 Complete 00:47 Current Medications Medications (Trade) Dose Ordered Sig/[place] Route PRN Reason Start Time Stop Time Status Last Admin Dose Admin Acetaminophen (TYLenol 500MG TAB) 1,000 mg ONCE ONCE PO 03/18/25 01:30 03/18/25 01:31 DC 03/18/25 01:48 Vital Signs Date Time Temp Pulse Resp B/P (MAP) Pulse Ox O2 Delivery O2 Flow Rate FiO2 03/18/25 01:09 72 19 106/60 99 Room Air* 0 21 03/18/25 00:12 98.2 87 20 103/65 98 Room Air HEART Score Response (Comments) Value History: Low suspicion (0) 0 EKG: Normal 0 Age: < 45yrs (0) 0 Risk Factors: No known risk factors (0) 0 Initial Troponin: Normal limit (0) 0 Total 0 Medical Decision Making MDM MDM: The patient is a 24-year-old female with a history of asthma, who is 36 weeks gestation who presents to the emergency department with complaints of shortness of breath, midsternal chest pain, onset 10:00 p.m.. Patient reports she started with a nonproductive cough yesterday. Denies any fevers. Patient reports that she has also been having lower abdominal pain, reports cramping sensation and intermediate coming every 10-15 minutes. Patient denies any vaginal bleeding or discharge. Patient reports her OB is . She is a by . Patient is due on April 13 CBC showed no leukocytosis, mild normocytic anemia, chemistry showed no electrolyte imbalance, negative troponin. Urinalysis unremarkable. Serology negative. Urinalysis unremarkable. Ob ultrasound revealed a single viable intrauterine corresponding to a gestational age of35 weeks and four days. Service clothes. No acute abnormality. Patient refused x-rays. Risks and benefits discussed with the patient who continues to refuse the x-ray. I informed patient of labs and ultrasound results. I discussed with the patient the need for transfer to a facility with labor and delivery due to patient having abdominal cramping and being far along her . Patient at this time refuses to be transferred or hospitalization. Patient reports that she wants to follow up with OBGYN. Risks and benefits discussed with the patient including of fetus and of a herself, worsening condition, pre term labor. Patient verbalized understanding of risks and benefits. Reports that she will call her OBGYN tomorrow. Patient instructed that if her abdominal pain worsens or she has any vaginal bleeding or discharge she should seek help immedi ately. On physical exam patient is in no acute distress, lung sounds are clear bilaterally. Patient will leave AMA Differential diagnosis: ACS, pneumonia, active labor, URI, asthma exacerbation Comorbidities: Asthma, DX & DISP Disposition: AMA Departure Condition: Stable Scripts Azithromycin (Zithromax) 250 Mg Tablet 250 MG PO AD for 5 Days, #6 TAB Take 2 250 mg tablets on day 1, then take 1 250mg tablets daily for 4 days Prov: YANI BONILLA 03/18/25 Referrals: DONALD LEHMAN DO (PCP) Time of Disposition: 02:30 I have reviewed the case, and I agree with, Diagnosis and Plan YANI BONILLA Mar 18, 2025 02:05
--- NOTE | 2025-03-18 02:11 | HMCIMG ---
EXAM: US Obstetrical, Complete >14 weeks. CLINICAL HISTORY: Pelvic pain. TECHNIQUE: Transabdominal imaging of the maternal pelvis and a > 14-week gestation with image documentation. COMPARISON: None provided. FINDINGS: FETUS: There is a single living intrauterine gestation. POSITION: position is cephalic. HEART RATE: The heart rate is 130 beats per minute. BIOMETRICS: Based on composite biometry, the estimated gestational age by ultrasound is 35 weeks 4 days. Biparietal Diameter: 8.9 cm, corresponding to 36 weeks 0 days. Head Circumference: 33.4 cm, corresponding to 38 weeks 1 day. Abdominal circumference: 31.2 cm, corresponding to 35 weeks 1 day. Femur Length: 6.3 cm, corresponding to 32 weeks 4 days. ANATOMIC SURVEY: The visualized anatomy is unremarkable. PLACENTA: The placenta is anterior, grade 2 maturity. No sonographic evidence for previa or abruption. AMNIOTIC FLUID: Within normal limits. CERVIX: Closed. Unremarkable as visualized. IMPRESSION: Limited examination. ER protocol. Limited anatomy evaluation due to advanced gestational age and increased movements. Single viable intrauterine corresponding to gestational age of 35 weeks 4 days. No acute abnormality. /[place]
[2025-03-18 02:12] LABS: COVID19 (SARS ANTIGEN RAPID) PRESUMPTIVE NEGATIVE (NEGATIVE); INFLUENZA TYPE A Negative For Type A (NEGATIVE); INFLUENZA TYPE B Negative For Type B (NEGATIVE)
--- NOTE | 2025-03-18 02:24 | NUR ---
OMEGA ALVAREZ INFORMED PATIENT THAT IT IS IN HER BEST INTEREST TO BE TRANSFERED TO ANOTHER FACILITY WITH OB SERVICES FOR FURTHER OBSERVATION, PATIENT STATED SHE DOES NOT WISH TO BE TRANSFERED AT THIS TIME AND WOULD LIKE TO BE DISCHARGED HOME. OMEGA ALVAREZ INFORMED PATIENT SHE WOULD HAVE TO SIGN AGAINST MEDICAL ADVICE, ALL RISKS OF LEAVING AMA INCLUDING EXPLAINED TO PATIENT BY OMEGA ALVAREZ. PATIENT VERBALIZED UNDERSTANDING OF RISKS AND TO SEEK IMMEDIATE MEDICAL ATTENTION IF SYMPTOMS WORSEN./ANN MARIE
[2025-03-18 02:28] VITALS: BP 97/68; PULSE 67; RESP 19; TEMP 98.3; O2SAT 99
--- NOTE | 2025-03-18 02:30 | NUR ---
AMA FORM SIGNED AT THIS TIME, REINFORCED EDUCATION TO SEEK MEDICAL ATTENTION IF SYMPTOMS WORSEN. PATIENT VERBALIZED UNDERSTANDING./ANN MARIE
== END ==
LOC: EDH 00:11
DX: O26.893 Other specified pregnancy related conditions, third trimester (principal); R07.89 Other chest pain; O99.513 Diseases of the respiratory system complicating pregnancy, third trimester; R06.02 Shortness of breath; J45.909 Unspecified asthma, uncomplicated; O26.891 Other specified pregnancy related conditions, first trimester; R10.2 Pelvic and perineal pain; Z3A.35 35 weeks gestation of pregnancy; Z79.52 Long term (current) use of systemic steroids; Z20.822 Contact with and (suspected) exposure to COVID-19
CPT/HCPCS: 36415; 76805; 80048; 81003; 82550; 84484; 84702; 85025; 86900; 86901; 87426; 87804; 93005; 99284

== ENCOUNTER 2025-04-10 22:04 | Emergency (ER) | payer MEDICAID ==
[~2025-04-10] VITALS: Ht 154.9 cm; Wt 71.7 kg
[2025-04-10 22:23] VITALS: TEMP 98.6
--- NOTE | 2025-04-10 22:42 | ERN ---
General Chief Complaint: Chest Pain Stated Complaint: C/O CHEST PRESSURE, NUMBNESS TO LEFT ARM, HIGH B/P Time Seen by MD: 22:13 Source: patient History of Present Illness Initial Comments 24-year-old female approximately one week out from a comes in with chest tightness and numbness to her left arm as well as an elevated blood pressure and bradycardia. Her blood pressure is normally not elevated, nor is her heart rate low. Other than that patient has no symptoms: No fevers no chills no diarrhea no change in urination. She states she has been eating well, not drinking as much fluids but eating well. Patient's main concern is her cardiac symptoms. Allergies: Coded Allergies: No Known Allergies (Unverified Allergy, Unknown, 07/24/20) Home Meds Active Scripts Azithromycin (Zithromax) 250 Mg Tablet, 250 MG PO AD for 5 Days, #6 TAB Take 2 250 mg tablets on day 1, then take 1 250mg tablets daily for 4 days Prov:YANI BONILLA SHAPING MACHINE OPERATOR 03/18/25 Albuterol Sulfate (Albuterol Sulfate) 2.5 Mg/3 Ml (0.083 %) Vial.neb, 1 VIAL NEB Q4HPRN PRN for wheezing for 60 Days, #150 ML 0 Refills Prov:SARAH APPIAH MD 07/23/24 Prednisone (Prednisone) 5 Mg Tablet, 40 MG PO DAILY for 5 Days, #5 TAB Prov:SARAH APPIAH MD 07/23/24 Albuterol Sulfate (Ventolin Hfa/Proventil Hfa/Proair Hfa) 90 Mcg/Puff Puff, 1-2 PUFF IH Q4H PRN for SHORTNESS OF BREATH for 5 Days, #1 INH 0 Refills PHARMACY TO DISPENSE 1 INHALER FOR USE Prov:TREVOR LAGUNA MD 08/09/21 Cefuroxime Axetil (Cefuroxime) 500 Mg Tablet, 500 MG PO BID for 10 Days, #20 TAB 0 Refills Prov:MICHELLE MARTIN MD 03/31/21 Ondansetron (Ondansetron Odt) 4 Mg Tab.rapdis, 4 MG PO Q6HPRN, #20 TAB 0 Refills Prov:DILSHAD YUSUF MD 01/31/21 Metoclopramide HCl (Reglan) 10 Mg Tablet, 10 MG PO TIDP, #20 TAB 0 Refills Prov:DILSHAD YUSUF MD 01/30/21 Pantoprazole Sodium (Protonix) 40 Mg Tablet.dr, 40 MG PO DAILYBKFST, #20 TAB 0 Refills Prov:DILSHAD YUSUF MD 01/30/21 Ondansetron (Ondansetron Odt) 4 Mg Tab.rapdis, 4 MG PO Q6HPRN, #20 TAB 0 Refills Prov:DILSHAD YUSUF MD 01/30/21 Dicyclomine HCl (Bentyl) 20 Mg Tab, 20 MG PO Q6HPRN, #20 TAB 0 Refills Prov:DILSHAD YUSUF MD 01/30/21 Past Medical History Past Medical History: Asthma, Other Medical History Other: HX OF GASTRITIS Past Surgical History: Surgical History Other: 6 days ago Family History Family History: Negative Social History Social History: Negative, Other Female( History) : 3 Para: 2 Constitutional: (-) chills, (-) diaphoresis, (-) fever, (-) malaise, (-) weakness, (-) other documentation EENTM: (-) eye pain, (-) blurred vision, (-) tearing, (-) double vision, (-) ear pain, (-) ear discharge, (-) nose pain, (-) nose congestion, (-) throat pain, (-) Throat swelling, (-) mouth pain, (-) tooth pain, (-) mouth swelling, (-) other documentation Respiratory: (-) cough, (-) orthopnea, (-) short of breath, (-) stridor, (-) wheezing, (-) other documentation Cardiovascular: (+) other documentation (Chest tightness) Gastrointestinal/Abdominal: (-) nausea, (-) vomiting, (-) diarrhea, (-) abdominal pain, (-) abdominal distention, (-) constipation, (-) rectal bleeding, (-) dark stool/melena, (-) other documentation Genitourinary: (-) vaginal discharge, (-) vaginal bleeding, (-) dysuria, (-) frequency, (-) hematuria, (-) pain, (-) other documentation Musculoskeletal: (-) Neck pain, (-) back pain, (-) Flank Pain, (-) joint pain, (-) joint swelling, (-) muscle pain, (-) muscle stiffness, (-) gout, (-) other documentation Skin: (-) laceration, (-) contusion, (-) abrasion, (-) abscess, (-) rash, (-) change in color, (-) change in hair, (-) change in nails, (-) diaphoresis, (-) dryness, (-) other documentation Neuro: (-) altered mental status, (-) headache, (-) syncope, (-) paralysis, (-) numbness, (-) seizure, (-) pre-existing deficit, (-) tremors, (-) weakness, (-) dizziness, (-) slurred speech, (-) vertigo, (-) other documentation Psych: (-) depression, (-) suicidal ideation, (-) anxiety, (-) emotional problems, (-) auditory hallucinations, (-) visual hallucinations Physical Exam General Appearance: (+) mild distress Orientation: (+) alert, (+) oriented x 3 Head/Face Trauma: No Eye: bilateral eye normal inspection, bilateral eye PERRL, bilateral eye EOMI Ear, Nose, Throat: (+) hearing grossly normal, (+) normal ENT inspection, (+) moist mucous membraine Neck: (+) normal inspection, (+) supple, (+) full range of motion, (+) no JVD Respiratory: (+) chest non-tender, (+) lungs clear, (+) well ventilated Heart: (+) regular, (+) no gallop, (+) murmur Vascular: (+) no edema, (+) normal peripheral pulse Gastrointestinal: (+) soft, (+) non-tender Gastrointestinal Comment Well-healing scar on abdomen no signs of infection. Long mature midline incision. Results Laboratory and Microbiology Lab and Micro Result Laboratory Tests Test 04/10/25 22:15 04/10/25 22:22 04/11/25 02:34 Urine Color COLORLESS (YELLOW) Urine Appearance CLEAR (CLEAR) Urine pH 6.5 (5.0-8.0) Urine Specific [place] 1.004 (1.001-1.031) Urine Protein NEGATIVE mg/dL (NEGATIVE) Urine Glucose (UA) NEGATIVE mg/dL (NEGATIVE) Urine Ketones NEGATIVE mg/dL (NEGATIVE) Urine Occult Blood MODERATE (NEGATIVE) H Urine Nitrate NEGATIVE (NEGATIVE) Urine Bilirubin NEGATIVE mg/dL (NEGATIVE) Urine Urobilinogen 0.2 mg/dL (0.2-1.0) Urine Leukocyte Esterase NEGATIVE [place]/uL Urine RBC 0-1 /HPF (0-1) Urine WBC 2-5 /HPF (0-1) H Urine Squamous Epithelial Cells RARE /HPF (0-2) Urine Bacteria RARE /HPF (None Seen) White Blood Count 8.9 K/uL (4.8-10.8) Red Blood Count 3.71 MIL/uL (4.00-5.50) L Hemoglobin 12.2 g/dL (12.0-16.0) Hematocrit 35.3 % (36-48) L Mean Corpuscular Volume 95.1 fL (79-99) Mean Corpuscular Hemoglobin 32.9 pg (27.0-33.0) Mean Corpuscular Hemoglobin Concent 34.6 g/dL (32.0-36.0) Red Cell Distribution Width 13.3 % (11.0-15.5) Platelet Count 238 K/uL (130-400) Mean Platelet Volume 11.4 fL (7.5-10.5) H Immature Granulocyte % (Auto) 0.3 % (0-1) Neutrophils (%) (Auto) 64.6 % (40.0-77.0) Lymphocytes (%) (Auto) 24.3 % (21.0-51.0) Monocytes (%) (Auto) 8.7 % (3.0-13.0) Eosinophils (%) (Auto) 1.8 % (0.0-8.0) Basophils (%) (Auto) 0.3 % (0.0-5.0) Neutrophils # (Auto) 5.8 K/uL (1.8-7.7) Lymphocytes # (Auto) 2.2 K/uL (1.0-4.8) Monocytes # (Auto) 0.8 K/uL (0.1-1.0) Eosinophils # (Auto) 0.16 K/uL (0.00-0.70) Basophils # (Auto) 0.03 K/uL (0.00-0.20) Absolute Immature Granulocyte (auto 0.03 K/uL (0-1) Nucleated Red Blood Cells 0.0 % (0.0-0.19) Sodium Level 140 mmol/L (136-145) Potassium Level 3.9 mmol/L (3.5-5.1) Chloride Level 106 mmol/L (101-111) Carbon Dioxide Level 29 mmol/L (21-32) Blood Urea Nitrogen 12 mg/dL (7-18) Creatinine 0.5 mg/dL (0.5-1.0) Glomerular Filtration Rate Calc 134 mL/min (>90) Random Glucose 88 mg/dL (70-105) Total Calcium 8.8 mg/dL (8.5-10.1) Total Creatine Kinase 88 U/L (21-232) # Troponin I High Sensitivity < 4 ng/L (4-50) L B-Type Natriuretic Peptide 78 pg/mL (0-100) Prothrombin Time 9.8 SEC (9.6-11.6) Prothromb Time International Ratio <= 0.93 (0.85-1.15) Activated Partial Thromboplast Time 26.7 SEC (26.3-35.5) Fibrinogen 644 mg/dL (180-350) *H Uric Acid 4.5 mg/dL (2.6-7.2) Magnesium Level 1.80 mg/dL (1.80-2.40) Total Bilirubin 0.5 mg/dL (0.2-1.0) Direct Bilirubin 0.1 mg/dL (0.0-0.3) Aspartate Amino Transf (AST/SGOT) 49 U/L (10-37) H Alanine Aminotransferase (ALT/SGPT) 164 U/L (12-78) H Alkaline Phosphatase 106 U/L (50-136) Total Protein 6.7 g/dL (6.0-8.3) Albumin 2.7 g/dL (3.5-5.0) L MDM MDM: Differential diagnosis: Hypertension bradycardia could be residual from . Chest tightness could also be associated with cardiac symptoms. Otherwise dehydration electrolyte abnormalities symptomatic bradycardia. Rationale: Tests considered and ordered secondary to shared decision making include: Previous outside records reviewed: Old ER visits. Risk of complication and/or morbidity or mortality of patient management: None Medications-Per medication reconciliation Need for hospitalization: Patient does meet criteria for hospitalization. Need for emergency major/minor surgery: No There are no social concerns with this patient. Prescription drug management Prescriptions will include symptomatic care Patient's prior external medical records from other ER visits were reviewed by me as indicated. Prior testing and results from previous visits were reviewed. Prior tests were taken into account with medical decision making and resource utilization, independent historian/historians were used to obtain complete medical history. I independently interpreted the test that were performed, results were reviewed by me and considered findings on radiology if ordered. Patient's CBC shows a mild anemia but a normal white count. Her chemistry panel is normal, including her cardiac enzymes. Urine analysis was negative for infection and negative for proteinuria. Patient felt like her symptoms of chest tightness have not resolved with fluid administration. She was concerned about her bradycardia so we performed an emergent echocardiogram which showed an ejection fraction of 60%. As I was discussing these results with the patient she mentioned to me her blurry vision and headache and despite the lack of proteinuria I became concerned for preeclampsia. Patient had 4 of the symptoms, albeit mild, associated with preeclampsia: Patient was bradycardic down to the 50s, her systolic blood pressure was 140, she had blurry vision and headaches. I discussed the patient with her automatic lathe tender Dr. Rapp who was concerned about preeclampsia despite the lack of proteinuria. We initiated the preeclampsia workup and treatment and transferred the patient [facility]. ED Course Orders Procedure Category Date Status Time Vital Signs Per CPOE 04/10/25 Transmitted Routine 22:15 Chest 1vw RAD 04/10/25 Resulted 22:15 12 Lead Ekg Tracing- EKG 04/10/25 Logged Technical 22:15 Oxygen By Nc/Pulse Ox CPOE 04/10/25 Transmitted 22:15 Maintain Iv CPOE 04/10/25 Transmitted 22:15 Iv Insertion CPOE 04/10/25 Transmitted 22:15 Cardiac Monitoring CPOE 04/10/25 Transmitted 22:15 Pulse Oximetry With CPOE 04/10/25 Transmitted Vs And Prn 22:15 Cbc With Differential LAB 04/10/25 Complete 22:15 Activity: Br W/Brp CPOE 04/10/25 Transmitted With Assist 22:15 Creatine Kinase, Total LAB 04/10/25 Complete 22:15 Troponin I High LAB 04/10/25 Complete Sensitivity 22:15 Urinalysis Profile LAB 04/10/25 Complete 22:15 Basic Metabolic Panel LAB 04/10/25 Complete 22:15 B-Type Natriuretic LAB 04/10/25 Complete Peptide 22:24 Lactated Ringers PHA 04/10/25 Complete 1000ml (Lactated 22:24 Echo 2-D Complete ECHO 04/11/25 Taken 00:55 Ibuprofen 800 Mg Tab PHA 04/11/25 Complete (Motrin) 02:00 Prothrombin Time With LAB 04/11/25 Complete INR 02:23 Fibrinogen LAB 04/11/25 Complete 02:23 Partial LAB 04/11/25 Complete Thromboplastin Time 02:23 Hepatic Function Panel LAB 04/11/25 Complete 02:27 Uric Acid LAB 04/11/25 Complete 02:27 Magnesium 4gm Premix PHA 04/11/25 Complete 100ml (Magnesium 4g 02:30 Magnesium 2gm Premix PHA 04/11/25 In Process 50ml (Magnesium 2gm 03:00 Magnesium LAB 04/11/25 Complete 02:34 Current Medications Medications (Trade) Dose Ordered Sig/[place] Route PRN Reason Start Time Stop Time Status Last Admin Dose Admin Ibuprofen (moTRIN) 800 mg ONCE ONCE PO 04/11/25 02:00 04/11/25 02:01 DC 04/11/25 01:57 Lactated Ringer's (Lactated Ringers 1000ml) 1,000 ml BOLUS STAT IV 04/10/25 22:24 04/10/25 22:26 DC 04/10/25 22:51 Magnesium Sulfate 50 ml @ 0 mls/hr PROTOCOL IV 04/11/25 03:00 05/11/25 02:59 04/11/25 03:11 Magnesium Sulfate (Magnesium 4gm Premix 100ml) 4 gm AD IV 04/11/25 02:30 04/11/25 02:32 DC Vital Signs Date Time Temp Pulse Resp B/P (MAP) Pulse Ox O2 Delivery O2 Flow Rate FiO2 04/11/25 02:45 50 18 139/90 99 Room Air* 0 04/11/25 00:48 54 18 132/76 99 Room Air* 0 04/10/25 23:35 58 18 141/86 99 Room Air* 0 04/10/25 22:23 98.6 57 18 148/85 99 Room Air* 0 04/10/25 22:09 97.7 57 20 149/89 98 Room Air DX & DISP Disposition: Transfer Departure Impression: Primary Impression: Preeclampsia Additional Impressions: Bradycardia, Hypertension Condition: Stable Referrals: DONALD LEHMAN DO (PCP) HEATHER BRENNAN MD Apr 10, 2025 22:42
[2025-04-10 22:51] LABS: IMMATURE GRANULOCYTE ABSOLUTE 0.03 K/uL (0-1); NUCLEATED RED BLOOD CELLS 0.0 % (0.0-0.19); PLATELET COUNT (AUTO) 238 K/uL (130-400); RED BLOOD CELL COUNT(AUTO) 3.71 MIL/uL (4.00-5.50); RED CELL DISTRIBUTION WIDTH 13.3 % (11.0-15.5); WHITE BLOOD COUNT (AUTO) 8.9 K/uL (4.8-10.8)
[2025-04-10] MEDS: LACTATED RINGERS 1000ML IV STA (22:51)
[2025-04-10 23:01] LABS: CREATININE 0.5 mg/dL (0.5-1.0); GLOMERULAR FILTR. RATE CALC 134.0 mL/min (>90); GLUCOSE,RANDOM 88.0 mg/dL (70-105); SODIUM SERUM 140.0 mmol/L (136-145); UREA NITROGEN, BLOOD 12.0 mg/dL (7-18)
[2025-04-10 23:06] LABS: CREATINE KINASE, TOTAL 88.0 U/L (21-232)
--- NOTE | 2025-04-10 23:50 | HMCIMG ---
EXAM: CR Chest, 1 view CLINICAL HISTORY: Chest pain. COMPARISON: Chest radiograph dated 08/30/2020. FINDINGS: The lungs show no infiltrates or other acute findings. No pleural effusion or pneumothorax. The cardiomediastinal silhouette is within normal limits. No acute osseous abnormality. IMPRESSION: No acute cardiopulmonary process is evident. No interval changes. /[place]
[2025-04-11 00:23] LABS: APPEARANCE,URINE CLEAR (CLEAR); GLUCOSE, URINE (UA) NEGATIVE (NEGATIVE); LEUKOCYTE ESTERASE ,URINE NEGATIVE Leu/uL (NEGATIVE); NITRATE,URINE NEGATIVE (NEGATIVE); OCCULT BLOOD,URINE MODERATE (NEGATIVE)
[2025-04-11 00:25] LABS: ADD UA MICROSCOPIC YES
[2025-04-11 00:27] LABS: SQUAMOUS EPITHELIAL CELL,UR RARE /HPF (0-2)
[2025-04-11] MEDS ORDERED: MAGNESIUM 4GM PREMIX 100ML IV SCH (02:30)
--- NOTE | 2025-04-11 02:50 | NUR ---
TRANSFER: CALL PLACED TO [facility]; SPOKE WITH ANN MARIE. INITIATED TRANSFER FOR PERSONAL CARE WORKER SERVICES.
[2025-04-11 02:57] LABS: INR <= 0.93 (0.85-1.15)
[2025-04-11 03:01] LABS: ASPARTATE AMINOTRANSFERASE 49.0 U/L (10-37); TOTAL PROTEIN, SERUM 6.7 g/dL (6.0-8.3)
[2025-04-11] MEDS: MAGNESIUM 2GM PREMIX 50ML 50 ML IV SCH (03:11)
--- NOTE | 2025-04-11 03:14 | NUR ---
TRANSFER: CALL RECEIVED FROM ANN MARIE CORONA RN FROM [facility]. PATIENT IS ACCEPTED TO [facility], DR. LYDIA MALDONADO, L&D ROOM #[id number].
--- NOTE | 2025-04-11 03:28 | NUR ---
TRANSPORT: CALL PLACED TO [facility] FOR TRANSPORT TO [facility] L&D ROOM #[id number].
--- NOTE | 2025-04-11 03:40 | NUR ---
REPORT GIVEN TO AV WHITE @ [facility]
--- NOTE | 2025-04-11 03:40 | NUR ---
[facility] ARRIVAL FOR PT TRANSPORT TO [facility] L&Reginald
[2025-04-11 03:50] VITALS: BP 136/89; PULSE 62; RESP 18; O2SAT 99
--- NOTE | 2025-04-11 03:50 | NUR ---
ER MD MADE AWARE OF THE FOLLOWING VITAL SIGNS: HR- 62 BP-136/89 RR- 18 SAO2 98% ROOM AIR VERBAL ORDER RECIEVED TO D/C BLOOD PRESSURE MEDICATIONS ORDERED.
--- NOTE | 2025-04-11 03:51 | NUR ---
[facility] DEPARTURE WITH PT TO [facility].
--- NOTE | 2025-04-11 06:39 | EKG ---
[facility] Test Date: 2025-04-10 Test Time: 22:07:28 Pat Name: MATILDE DURAN Department: [facility] [address] Room: Gender: F Ice Cutter: [id number] : 2000 Requested By: HEATHER BRENNAN Order Number: [id number] Reading MD: Ophelia Burt Measurements Intervals [place] Rate: 52 P: -3 LA: 160 QRS: 50 QRSD: 71 T: 59 QT: 390 QTc: 364 Interpretive Statements Sinus rhythm Compared to ECG 03/18/2025 00:34:53 No significant changes Electronically Signed On 04-11-2025 11:21:36 CDT by Ophelia Burt Please click the below link to view image of tracing.
--- NOTE | 2025-04-11 10:33 | HMCSR ---
APPROVED REPORT EXAM: Two-dimensional and M-mode echocardiogram with Doppler and color Doppler. INDICATION ICD: Bradycardia R00.1 post 2D Dimensions RVDd3.6 cmLVEF(%)69.9 (>50%)LA ESV INDEX (BP)31.55 mL/m2 IVSd0.6 (0.7-1.1cm)FS(%)39 % LVDd4.5 (3.8-5.6cm)LA (2D)4.1 (1.6-4.0cm) PWd0.9 (0.7-1.1cm)Ao Root(2D)2.7 (2.0-3.7cm) IVSs1.0 cmLVOT diam1.9 (1.8-2.4cm) LVDs2.8 (2.5-4.0cm)IVC diam1.7 cm PWs1.2 cm Deformation Strain Apical 4-20.3 % Apical 2-21.2 % Apical 3-23.2 % Global Strain-21.6 % M-Mode Dimensions EPSS0.5 cm LA (MM)4.4 (1.6-4.0cm) Ao Root(MM)2.7 (2.0-3.7cm) Aortic Valve AoV Vmax1.3 m/Alberto Peak GR7.0 mmHgLVOT Vmax0.8 m/s AoV VTI0.3 mAo Mean GR3.1 mmHgLVOT VTI0.22 m DRAKE (VMAX)1.67 cm2AVA (VTI) 1.9 cm2 Mitral Valve MV E Vmax99.4 cm/sDECEL Cebj525 ms MV A Vmax51.1 cm/sP 1/2 T64 ms E/A ratio1.9MVA (PHT)3.4 cm2 TDI E/E' Ojplpf29.1E/E' Lateral8.7 Medial E' Peak V7.07 cm/sLateral E' Peak V11.41 cm/s Pulmonary Valve PV Vmax1.1 m/sPV VTI0.26 mPV Mean GR2.8 mmHg PV Peak GR4.8 mmHg Tricuspid Valve TR Vmax1.4 m/sRAP (EST) 3 roTeZBPU12.4 mmHg TR Peak GR7.4 mmHg Left Ventricle The left ventricle is normal size. GLS -22.0% There is normal left ventricular wall thickness. LVEF i s 60-65%. The left ventricular diastolic function is normal. Right Ventricle The right ventricle is normal size. The right ventricular systolic function is normal. Atria The left atrium size is normal. The right atrium size is normal. Aortic Valve The aortic valve is normal in structure. No aortic regurgitation is present. There is no aortic valvu lar stenosis. Mitral Valve The mitral valve is normal in structure. There is trivial mitral valve regurgitation noted. There is no mitral valve stenosis. Tricuspid Valve The tricuspid valve is normal in structure. There is no tricuspid valve regurgitation noted. Pulmonic Valve The pulmonary valve is normal in structure. There is no pulmonic valvular regurgitation. Great Vessels The aortic root is normal in size. The IVC is normal in size and collapses >50% with inspiration. Pericardium There is no pericardial effusion. Other Information Quality : AdequateRhythm : Bradycardia Conclusion LVEF is 60-65%. GLS -22.0% There is trivial mitral valve regurgitation noted.
== END 2025-04-11 03:51 | disposition short-term general hospital (02) ==
LOC: EDH 22:04
DX: O14.90 Unspecified pre-eclampsia, unspecified trimester (principal); R00.1 Bradycardia, unspecified; J45.909 Unspecified asthma, uncomplicated; Z79.52 Long term (current) use of systemic steroids; Z79.899 Other long term (current) drug therapy
CPT/HCPCS: 99285; 71045; 82550; 80076; 83615; 83735; 84484; 84550; 80048; 83880; 85025; 85384; 85610; 85730; 81001; 36415 ×2; 93005; 93306; 96365; J3475

== ENCOUNTER → 2025-06-01 | Emergency (ER) | payer MEDICAID ==
[~2025-06-01] VITALS: Ht 154.9 cm; Wt 67.2 kg
[~2025-06-01] MED LIST changes: +NAPR-1196 PO
--- NOTE | 2025-06-01 16:01 | ERN ---
ED Note History of Present Illness Stated Complaint: LIGHTHEADNESS Chief Complaint: Dizzy/Light Headed Time Seen by MD: 15:57 Dictation: 25-year-old female with recent , diagnosed with preeclampsia one month ago who is here for evaluation of 1 hour history of generalized body weakness, nausea, vomiting, dizziness. States that she has been eating and drinking normally but was mostly concerned about the dizziness. Denies any trauma to the head. Allergies: Coded Allergies: No Known Allergies (Unverified Allergy, Unknown, 07/24/20) Home Meds Active Scripts Azithromycin (Zithromax) 250 Mg Tablet, 250 MG PO AD for 5 Days, #6 TAB Take 2 250 mg tablets on day 1, then take 1 250mg tablets daily for 4 days Prov:YANI BONILLA CLOTH WASHER OPERATOR 03/18/25 Albuterol Sulfate (Albuterol Sulfate) 2.5 Mg/3 Ml (0.083 %) Vial.neb, 1 VIAL NEB Q4HPRN PRN for wheezing for 60 Days, #150 ML 0 Refills Prov:SARAH APPIAH MD 07/23/24 Prednisone (Prednisone) 5 Mg Tablet, 40 MG PO DAILY for 5 Days, #5 TAB Prov:SARAH APPIAH MD 07/23/24 Albuterol Sulfate (Ventolin Hfa/Proventil Hfa/Proair Hfa) 90 Mcg/Puff Puff, 1-2 PUFF IH Q4H PRN for SHORTNESS OF BREATH for 5 Days, #1 INH 0 Refills PHARMACY TO DISPENSE 1 INHALER FOR USE Prov:TREVOR LAGUNA MD 08/09/21 Cefuroxime Axetil (Cefuroxime) 500 Mg Tablet, 500 MG PO BID for 10 Days, #20 TAB 0 Refills Prov:MICHELLE MARTIN MD 03/31/21 Ondansetron (Ondansetron Odt) 4 Mg Tab.rapdis, 4 MG PO Q6HPRN, #20 TAB 0 Refills Prov:DILSHAD YUSUF MD 01/31/21 Metoclopramide HCl (Reglan) 10 Mg Tablet, 10 MG PO TIDP, #20 TAB 0 Refills Prov:DILSHAD YUSUF MD 01/30/21 Pantoprazole Sodium (Protonix) 40 Mg Tablet.dr, 40 MG PO DAILYBKFST, #20 TAB 0 Refills Prov:DILSHAD YUSUF MD 01/30/21 Ondansetron (Ondansetron Odt) 4 Mg Tab.rapdis, 4 MG PO Q6HPRN, #20 TAB 0 Refills Prov:DILSHAD YUSUF MD 01/30/21 Dicyclomine HCl (Bentyl) 20 Mg Tab, 20 MG PO Q6HPRN, #20 TAB 0 Refills Prov:DILSHAD YUSUF MD 01/30/21 Past Medical History Past Medical History: Asthma, Other Additional Past Medical Hx: HX OF GASTRITIS Surgical History: Surgical History Other: 6 days ago Family History: Negative Social History: Negative, Other : 3 Para: 2 Review of System Dictation Positive for dizziness, nausea, vomiting Review of Systems: was completed, & the rest were negative. Initial Vital Sign VS Vital Signs Date Time Temp Pulse Resp B/P (MAP) Pulse Ox O2 Delivery O2 Flow Rate FiO2 06/01/25 15:56 97.2 90 16 124/84 100 Room Air 0 06/01/25 16:04 21 Physical Exam Dictation GENERAL APPEARANCE NAD, activity normal for age, well developed/ well nourished, no cyanosis, pallor, or diaphoresis. Obese EYES lids/conjunctiva normal. EARS/NOSE/THROAT Mucous membranes moist, nares normal, lips/teeth normal uvula midline without oral pharyngeal erythema, . No lymphangitis/lymphedema. HEAD/NECK normocephalic atraumatic, no facial trauma, neck is supple. RESPIRATORY respiratory effort normal, speaks in full sentences, no tripod position, no accessory muscle use. Lungs clear to auscultation without rhonchi, wheezes, rales CARDIAC Regular rate and rhythm, no edema. ABDOMINAL Soft, ND/NT. No evidence of fluid wave. No pulsatile masses on exam, rebound tenderness, Bowers sign or pain over Mcburney's point. MUSCLES/EXTREMITIES No abnormal range of motion, no swelling. SKIN Warm, pink and dry. No rashes, dermatoses, petechiae or lesions. NEUROLOGICAL Speech is clear and appropriate. Normal level of consciousness. Gait and coordination are normal. 5/5 strength in all extremities. PSYCH Normal mood and affect. Judgement/competence is appropriate Results (Laboratory/Radiology) Laboratory/Radiology Laboratory Tests Test 06/01/25 16:10 06/01/25 17:24 White Blood Count 8.2 K/uL (4.8-10.8) Red Blood Count 4.14 MIL/uL (4.00-5.50) Hemoglobin 13.1 g/dL (12.0-16.0) Hematocrit 38.8 % (36-48) Mean Corpuscular Volume 93.7 fL (79-99) Mean Corpuscular Hemoglobin 31.6 pg (27.0-33.0) Mean Corpuscular Hemoglobin Concent 33.8 g/dL (32.0-36.0) Red Cell Distribution Width 12.0 % (11.0-15.5) Platelet Count 291 K/uL (130-400) Mean Platelet Volume 10.8 fL (7.5-10.5) H Immature Granulocyte % (Auto) 0.1 % (0-1) Neutrophils (%) (Auto) 57.2 % (40.0-77.0) Lymphocytes (%) (Auto) 32.2 % (21.0-51.0) Monocytes (%) (Auto) 7.4 % (3.0-13.0) Eosinophils (%) (Auto) 2.6 % (0.0-8.0) Basophils (%) (Auto) 0.5 % (0.0-5.0) Neutrophils # (Auto) 4.7 K/uL (1.8-7.7) Lymphocytes # (Auto) 2.6 K/uL (1.0-4.8) Monocytes # (Auto) 0.6 K/uL (0.1-1.0) Eosinophils # (Auto) 0.21 K/uL (0.00-0.70) Basophils # (Auto) 0.04 K/uL (0.00-0.20) Absolute Immature Granulocyte (auto 0.01 K/uL (0-1) Nucleated Red Blood Cells 0.0 % (0.0-0.19) Sodium Level 140 mmol/L (136-145) Potassium Level 3.7 mmol/L (3.5-5.1) Chloride Level 102 mmol/L (101-111) Carbon Dioxide Level 28 mmol/L (21-32) Blood Urea Nitrogen 9 mg/dL (7-18) Creatinine 0.6 mg/dL (0.5-1.0) Glomerular Filtration Rate Calc 128 mL/min (>90) Random Glucose 92 mg/dL (70-105) Total Calcium 9.3 mg/dL (8.5-10.1) Magnesium Level 1.60 mg/dL (1.80-2.40) L Total Bilirubin 0.7 mg/dL (0.2-1.0) Direct Bilirubin 0.2 mg/dL (0.0-0.3) Aspartate Amino Transf (AST/SGOT) 29 U/L (10-37) Alanine Aminotransferase (ALT/SGPT) 49 U/L (12-78) Alkaline Phosphatase 92 U/L (50-136) Total Protein 8.2 g/dL (6.0-8.3) Albumin 4.0 g/dL (3.5-5.0) Urine Color LIGHT-YELLOW (YELLOW) Urine Appearance CLEAR (CLEAR) Urine pH 6.5 (5.0-8.0) Urine Specific [place] 1.005 (1.001-1.031) Urine Protein NEGATIVE mg/dL (NEGATIVE) Urine Glucose (UA) NEGATIVE mg/dL (NEGATIVE) Urine Ketones NEGATIVE mg/dL (NEGATIVE) Urine Occult Blood NEGATIVE (NEGATIVE) Urine Nitrate NEGATIVE (NEGATIVE) Urine Bilirubin NEGATIVE mg/dL (NEGATIVE) Urine Urobilinogen 0.2 mg/dL (0.2-1.0) Urine Leukocyte Esterase 25 [place]/uL (NEGATIVE) H Urine RBC 0-1 /HPF (0-1) Urine WBC 2-5 /HPF (0-1) H Urine Squamous Epithelial Cells FEW /HPF (0-2) Urine Bacteria RARE /HPF (None Seen) Urine Opiates Screen NEGATIVE (NEGATIVE) Urine Barbiturates Screen NEGATIVE (NEGATIVE) Urine Phencyclidine Screen NEGATIVE (NEGATIVE) Urine Amphetamines Screen NEGATIVE (NEGATIVE) Urine Benzodiazepines Screen NEGATIVE (NEGATIVE) Urine Cocaine Screen NEGATIVE (NEGATIVE) Urine Marijuana (THC) Screen NEGATIVE (NEGATIVE) ED Course ED Course Orders Procedure Category Date Status Time Cbc With Differential LAB 06/01/25 Complete 16: Basic Metabolic Panel LAB 06/01/25 Complete 16: Hepatic Function Panel LAB 06/01/25 Complete 16:01 Urinalysis Profile LAB 06/01/25 Complete 16:01 Drug Screen Urine LAB 06/01/25 Complete 16:01 12 Lead Ekg Tracing- EKG 06/01/25 Complete Technical 16:01 Magnesium LAB 06/01/25 Complete 16:01 0.9%Nacl 1000ml (Ns PHA 06/01/25 In Process 1000ml) 17:00 Ketorolac PHA 06/01/25 In Process Tromethamine 15mg/Ml 17:30 Current Medications Medications (Trade) Dose Ordered Sig/Lakeisha Route PRN Reason Start Time Stop Time Status Last Admin Dose Admin Ketorolac Tromethamine (toRADol) 15 mg ONCE IV 06/01/25 17:30 06/01/25 21:30 06/01/25 17:50 Sodium Chloride 1,000 ml @ 0 mls/hr ONCE IV 06/01/25 17:00 06/02/25 16:59 06/01/25 17:23 Vital Signs Date Time Temp Pulse Resp B/P (MAP) Pulse Ox O2 Delivery O2 Flow Rate FiO2 06/01/25 17:31 97.7 63 19 100/72 100 Room Air* 0 21 06/01/25 16:04 97.2 90 16 124/84 100 Room Air* 0 21 06/01/25 15:56 97.2 90 16 124/84 100 Room Air 0 Medical Decision Making MDM 25-year-old female here for weakness and malaise. Labs reassuring. Re she re ceived1 L fluid as well as Toradol which improved her symptoms. Advised to follow up with PCP. All questions answered. Reviewed labs with the patient. We will discharge home at this time. DX & DISP Disposition: Discharge Departure Impression: Primary Impression: Headache Condition: Stable Scripts Naproxen (Naproxen) 250 Mg Tablet 1 TAB PO BID for pain for 15 Days, #30 TAB 0 Refills Prov: SHAQ VINCENT MD 06/01/25 Referrals: BARRY DUBOIS TOOL HONING MACHINE SET UP OPERATOR (PCP) SHAQ VINCENT MD Jun 01, 2025 16:00
[2025-06-01 16:17] LABS: IMMATURE GRANULOCYTE ABSOLUTE 0.01 K/uL (0-1); NUCLEATED RED BLOOD CELLS 0.0 % (0.0-0.19); PLATELET COUNT (AUTO) 291 K/uL (130-400); RED BLOOD CELL COUNT(AUTO) 4.14 MIL/uL (4.00-5.50); RED CELL DISTRIBUTION WIDTH 12.0 % (11.0-15.5); WHITE BLOOD COUNT (AUTO) 8.2 K/uL (4.8-10.8)
[2025-06-01 16:24] LABS: CREATININE 0.6 mg/dL (0.5-1.0); GLOMERULAR FILTR. RATE CALC 128.0 mL/min (>90); GLUCOSE,RANDOM 92.0 mg/dL (70-105); SODIUM SERUM 140.0 mmol/L (136-145); UREA NITROGEN, BLOOD 9.0 mg/dL (7-18)
[2025-06-01 16:28] LABS: ASPARTATE AMINOTRANSFERASE 29.0 U/L (10-37); TOTAL PROTEIN, SERUM 8.2 g/dL (6.0-8.3)
--- NOTE | 2025-06-01 16:29 | EKG ---
[facility] Test Date: 2025-06-01 Test Time: 16:16:20 Pat Name: MATILDE DURAN Department: [facility] Room: Gender: F Chip Tester: [id number] : 2000 Requested By: SHAQ VINCENT Order Number: [id number] Reading MD: Shun Kearney Measurements Intervals [place] Rate: 69 P: -9 [place]: 155 QRS: 68 QRSD: 83 T: 60 QT: 380 QTc: 409 Interpretive Statements Sinus rhythm Compared to ECG 04/10/2025 22:07:28 No significant changes Electronically Signed On 06-01-2025 18:14:23 CDT by Shun Kearney Please click the below link to view image of tracing.
[2025-06-01] MEDS: 0.9%NACL 1000ML 1,000 ML IV SCH (17:23)
[2025-06-01 17:37] LABS: APPEARANCE,URINE CLEAR (CLEAR); GLUCOSE, URINE (UA) NEGATIVE (NEGATIVE); LEUKOCYTE ESTERASE ,URINE 25 Leu/uL (NEGATIVE); NITRATE,URINE NEGATIVE (NEGATIVE); OCCULT BLOOD,URINE NEGATIVE (NEGATIVE)
[2025-06-01 17:40] LABS: ADD UA MICROSCOPIC YES
[2025-06-01 17:44] LABS: AMPHET/METH SCREEN,URINE NEGATIVE (NEGATIVE); BARBITURATE SCREEN, URINE NEGATIVE (NEGATIVE); CANNABINOID SCREEN,URINE NEGATIVE (NEGATIVE); COCAINE SCREEN,URINE NEGATIVE (NEGATIVE)
[2025-06-01 17:47] LABS: SQUAMOUS EPITHELIAL CELL,UR FEW /HPF (0-2)
[2025-06-01 18:25] VITALS: BP 104/51; PULSE 71; RESP 18; TEMP 97.8; O2SAT 100
--- NOTE | 2025-06-01 19:01 | NUR ---
DC PATIENT WAS DC'D BY DR MELISA Scanlon DC'D PATIENTS IV WITH CATH STILL INTACT AND APPLIED 2X2 GAUZE WITH COBAN I EXPLAINED TO PATIENT TO FOLLOW UP WITH PCP, PROVIDED INFO BASED ON DIAGNOSIS, PRESCRIPTIONS AND ANSWERED ANY FOLLOW UP QUESTIONS, PATIENT AMBULATED OUT OF ED, NO COMPLICATIONS
== END ==
LOC: EDH 15:54
DX: R51.9 Headache, unspecified (principal); J45.909 Unspecified asthma, uncomplicated; Z79.52 Long term (current) use of systemic steroids; Z79.899 Other long term (current) drug therapy; Z98.890 Other specified postprocedural states
CPT/HCPCS: 99284; 96374; 96361; 80076; 83735; 80048; 80305; 85025; 36415; 93005; 81001; J1885; J7030

== ENCOUNTER 2025-07-16 22:31 | Emergency (ER) | payer MEDICAID ==
[~2025-07-16] VITALS: Ht 154.9 cm; Wt 67.1 kg
--- NOTE | 2025-07-16 22:44 | ERN ---
ED Note History of Present Illness Stated Complaint: C/O N X V, DIZZINESS, WEAKNESS, PRESSURE TO CHEST Chief Complaint: Dizzy/Light Headed Time Seen by MD: 22:37 Dictation: PATIENT IS A 25-YEAR-OLD COMING IN WITH MULTIPLE MULTIPLE COMPLAINTS TO INCLUDE GENERALIZED BODY WEAKNESS STATING SHE CAN NOT FEEL HER LEGS FROM HER KNEES DOWN ONSET WAS 2 HOURS PRIOR TO ARRIVAL. SHE ALSO STATES HER BLOOD PRESSURE HAS BEEN HIGH AND SHE HAS A PICTURE OF IT AT HOME WITH A BLOOD PRESSURE MACHINE SHOWING A SYSTOLIC OF 128. SHE ALSO STATES SHE IS HAVING CHEST PAIN. SHE DELIVERED HER BABY THREE MONTHS AGO AT [facility] AND AT THAT TIME WAS PREECLAMPTIC AND HER CHIEF DESIGN BRANCH DOCTOR TOLD HER THAT PREECLAMPSIA GOES AWAY. HAS A ANY CARDIAC HISTORY NO CHEST PAIN AT THE PRESENT TIME. PATIENT IS NORMOTENSIVE IN TRIAGE AND NIH IS 0. DOCTORS IN [facility]. Allergies: Coded Allergies: No Known Allergies (Unverified Allergy, Unknown, 07/24/20) Home Meds Active Scripts Naproxen (Naproxen) 250 Mg Tablet, 1 TAB PO BID for pain for 15 Days, #30 TAB 0 Refills Prov:SHAQ VINCENT MD 06/01/25 Azithromycin (Zithromax) 250 Mg Tablet, 250 MG PO AD for 5 Days, #6 TAB Take 2 250 mg tablets on day 1, then take 1 250mg tablets daily for 4 days Prov:YANI BONILLA MANAGER HI 03/18/25 Albuterol Sulfate (Albuterol Sulfate) 2.5 Mg/3 Ml (0.083 %) Vial.neb, 1 VIAL NEB Q4HPRN PRN for wheezing for 60 Days, #150 ML 0 Refills Prov:SARAH APPIAH MD 07/23/24 Prednisone (Prednisone) 5 Mg Tablet, 40 MG PO DAILY for 5 Days, #5 TAB Prov:SARAH APPIAH MD 07/23/24 Albuterol Sulfate (Ventolin Hfa/Proventil Hfa/Proair Hfa) 90 Mcg/Puff Puff, 1-2 PUFF IH Q4H PRN for SHORTNESS OF BREATH for 5 Days, #1 INH 0 Refills PHARMACY TO DISPENSE 1 INHALER FOR USE Prov:TREVOR LAGUNA MD 08/09/21 Cefuroxime Axetil (Cefuroxime) 500 Mg Tablet, 500 MG PO BID for 10 Days, #20 TAB 0 Refills Prov:MICHELLE MARTIN MD 03/31/21 Ondansetron (Ondansetron Odt) 4 Mg Tab.rapdis, 4 MG PO Q6HPRN, #20 TAB 0 Refills Prov:DILSHAD YUSUF MD 01/31/21 Metoclopramide HCl (Reglan) 10 Mg Tablet, 10 MG PO TIDP, #20 TAB 0 Refills Prov:DILSHAD YUSUF MD 01/30/21 Pantoprazole Sodium (Protonix) 40 Mg Tablet.dr, 40 MG PO DAILYBKFST, #20 TAB 0 Refills Prov:DILSHAD YUSUF MD 01/30/21 Ondansetron (Ondansetron Odt) 4 Mg Tab.rapdis, 4 MG PO Q6HPRN, #20 TAB 0 Refills Prov:DILSHAD YUSUF MD 01/30/21 Dicyclomine HCl (Bentyl) 20 Mg Tab, 20 MG PO Q6HPRN, #20 TAB 0 Refills Prov:DILSHAD YUSUF MD 01/30/21 Past Medical History Past Medical History: Asthma, Diabetes-Type II, High Cholesterol Additional Past Medical Hx: PRECLAMPSIA Surgical History: Surgical History Other: 6 days ago Family History: Negative Social History: Negative, Other LMP: Jun 23, 2025 : 3 Para: 3 RN Note Reviewed/Agreed w/PFSH: Yes Review of System Dictation CONSTITUTIONAL: NEGATIVE EXCEPT FOR HPI GENERALIZED BODY WEAKNESS HEAD/FACE: NEGATIVE EXCEPT FOR HPI EENT: NEGATIVE EXCEPT FOR HPI RESPIRATORY: NEGATIVE EXCEPT FOR HPI CHEST PAIN GASTROINTESTINAL/ABDOMINAL: NEGATIVE EXCEPT FOR HPI GENITOURINARY: NEGATIVE EXCEPT FOR HPI MUSCULOSKELETAL: NEGATIVE EXCEPT FOR HPI INTEGUMENTARY: NEGATIVE EXCEPT FOR HPI NEUROLOGICAL/PSYCH: NEGATIVE EXCEPT FOR HPI NUMBNESS AND TINGLING BILATERAL LOWER EXTREMITIES FROM KNEES DOWN HEMATOLOGIC/LYMPHATIC: NEGATIVE EXCEPT FOR HPI ALL SYSTEMS NEGATIVE, EXCEPT NOTED ABOVE. 13 POINT REVIEW OF SYSTEMS ASSESSED AND ALL NEGATIVE EXCEPT FOR ABOVE. Initial Vital Sign VS Vital Signs Date Time Temp Pulse Resp B/P (MAP) Pulse Ox O2 Delivery O2 Flow Rate FiO2 07/16/25 22:35 98.1 98 20 130/90 100 Room Air 07/16/25 23:01 0 21 Physical Exam Dictation VITAL SIGNS REVIEWED GENERAL APPEARANCE: ALERT, ORIENTED X 3, MILD/ANXIOUS ACUTE DISTRESS, WELL DEVELOPED, NOURISHED. OBESE HEAD AND FACE: NON-TRAUMATIC. EYES: PERRL, PINK CONJUNCTIVAS, EYELID NO TRAUMA, ANTERIOR CHAMBER WITH ARCUS SENILIS. EARS: PINNAS INTACT AND NO SIGNS OF TRAUMA OR ERYTHEMA EAR CANALS CLEAR AND NO DISCHARGE TM NO ERYTHEMA NOSE: NO DISCHARGE, NO BLEEDING. OROPHARYNX: MOUTH NORMAL, TONGUE PINK, PHARYNX CLEAR,NO ERYTHEMA, TONSILS NO EXUDATES, NO ABSCESSES NOTED, MUCOUS MEMBRANE MOIST NECK: SUPPLE, NON-TENDER, NO THYROMEGALY, NO MASSES, NO JVD, NO BRUITS BREAST:DEFERRED CHEST:NO TENDERNESS, NO CREPITUS, NO PARADOXICAL MOVEMENT, NO RETRACTIONS LUNGS:CLEAR, WELL-VENTILATED, SYMMETRIC, NO RALES, NO WHEEZING, NO RHONCHI, NO STRIDOR, GOOD BREATH SOUNDS BILATERALLY HEART: REGULAR RATE, REGULAR RHYTHM, NO MURMUR, NO GALLOPS VASCULAR: NO PERIPHERAL EDEMA, ABDOMEN: SOFT, POSITIVE BOWEL SOUNDS, NONDISTENDED, NO GUARDING, NONTENDER, NO REBOUND, NO MASSES NO HEPATOMEGALY, NO SPLENOMEGALY, NO FERNANDEZ'S SIGN, NO HERNIAS. RECTAL: DEFERRED GENITAL: DEFERRED NEUROLOGICAL: NORMAL SPEECH, MOTOR FUNCTION INTACT, SENSORY FUNCTION INTACT NIH IS 0 MUSCULOSKELETAL: NECK NONTENDER, FULL RANGE OF MOTION, BACK NONTENDER, FULL RANGE OF MOTION, EXTREMITIES: NONTENDER, FULL RANGE OF MOTION SKIN: COLOR PINK, DRY, NO TURGOR, NO RASH, NO LACERATIONS, NO ABRASIONS, NO CONTUSIONS. LYMPHATIC: DEFERRED Results (Laboratory/Radiology) Laboratory/Radiology Laboratory Tests Test 07/16/25 22:46 07/16/25 23:50 07/17/25 00:33 White Blood Count 8.3 K/uL (4.8-10.8) Red Blood Count 4.11 MIL/uL (4.00-5.50) Hemoglobin 12.7 g/dL (12.0-16.0) Hematocrit 37.5 % (36-48) Mean Corpuscular Volume 91.2 fL (79-99) Mean Corpuscular Hemoglobin 30.9 pg (27.0-33.0) Mean Corpuscular Hemoglobin Concent 33.9 g/dL (32.0-36.0) Red Cell Distribution Width 12.2 % (11.0-15.5) Platelet Count 188 K/uL (130-400) Mean Platelet Volume 11.8 fL (7.5-10.5) H Immature Granulocyte % (Auto) 0.1 % (0-1) Neutrophils (%) (Auto) 56.3 % (40.0-77.0) Lymphocytes (%) (Auto) 34.4 % (21.0-51.0) Monocytes (%) (Auto) 7.3 % (3.0-13.0) Eosinophils (%) (Auto) 1.5 % (0.0-8.0) Basophils (%) (Auto) 0.4 % (0.0-5.0) Neutrophils # (Auto) 4.7 K/uL (1.8-7.7) Lymphocytes # (Auto) 2.8 K/uL (1.0-4.8) Monocytes # (Auto) 0.6 K/uL (0.1-1.0) Eosinophils # (Auto) 0.12 K/uL (0.00-0.70) Basophils # (Auto) 0.03 K/uL (0.00-0.20) Absolute Immature Granulocyte (auto 0.01 K/uL (0-1) Nucleated Red Blood Cells 0.0 % (0.0-0.19) Troponin I High Sensitivity < 4 ng/L (4-50) L Sodium Level 139 mmol/L (136-145) Potassium Level 3.7 mmol/L (3.5-5.1) Chloride Level 103 mmol/L (101-111) Carbon Dioxide Level 27 mmol/L (21-32) Blood Urea Nitrogen 18 mg/dL (7-18) Creatinine 0.5 mg/dL (0.5-1.0) Glomerular Filtration Rate Calc 133 mL/min (>90) Random Glucose 94 mg/dL (70-105) Total Calcium 9.1 mg/dL (8.5-10.1) Urine Color COLORLESS (YELLOW) Urine Appearance CLEAR (CLEAR) Urine pH 7.5 (5.0-8.0) Urine Specific [place] 1.011 (1.001-1.031) Urine Protein NEGATIVE mg/dL (NEGATIVE) Urine Glucose (UA) NEGATIVE mg/dL (NEGATIVE) Urine Ketones NEGATIVE mg/dL (NEGATIVE) Urine Occult Blood NEGATIVE (NEGATIVE) Urine Nitrate NEGATIVE (NEGATIVE) Urine Bilirubin NEGATIVE mg/dL (NEGATIVE) Urine Urobilinogen 0.2 mg/dL (0.2-1.0) Urine Leukocyte Esterase NEGATIVE [place]/uL Urine HCG, Qualitative NEGATIVE (NEGATIVE) Labs Reviewed?: Yes EKG: (+) NSR EKG Comment: EKG NORMAL SINUS RHYTHM/HEART RATE 71/AXIS NORMAL/NO ECTOPY ED Course ED Course Orders Procedure Category Date Status Time Ondansetron Odt 4mg PHA 07/16/25 Complete Tab (Zofran 4mg Odt) 23:00 Cbc With Differential LAB 07/16/25 Complete 22:37 12 Lead Ekg Tracing- EKG 07/16/25 Logged Technical 22:37 Troponin I High LAB 07/16/25 Complete Sensitivity 22:37 ,Urine Test LAB 07/16/25 Complete 23:09 Urinalysis Profile LAB 07/16/25 Complete 23:09 Basic Metabolic Panel LAB 07/16/25 Complete 23:33 Current Medications Medications (Trade) Dose Ordered Sig/Lakeisha Route PRN Reason Start Time Stop Time Status Last Admin Dose Admin Ondansetron HCl (zoFRAN 4MG ODT) 4 mg ONCE ONCE SL 07/16/25 23:00 07/16/25 23:01 DC 07/16/25 23:53 Vital Signs Date Time Temp Pulse Resp B/P (MAP) Pulse Ox O2 Delivery O2 Flow Rate FiO2 07/16/25 23:01 98.4 74 18 120/67 98 Room Air* 0 21 07/16/25 22:35 98.1 98 20 130/90 100 Room Air 0050/PATIENT DISCHARGED HOME WITH A COMPLETELY NORMAL WORKUP. SHE WAS TOLD TO GO SEE HER PRIMARY CARE DOCTOR IN [facility] TOMORROW FOR FOLLOW UP AND MANAGEMENT. HEART Score Response (Comments) Value History: Low suspicion (0) 0 EKG: Normal 0 Age: < 45yrs (0) 0 Risk Factors: No known risk factors (0) 0 Initial Troponin: Normal limit (0) 0 Total 0 Medical Decision Making MDM MDM: DIFFERENTIAL DIAGNOSIS: ACS/AMI/ELECTROLYTE IMBALANCE/DEHYDRATION/UTI//ANXIETY RATIONALE: TESTS CONSIDERED AND ORDERED SECONDARY TO SHARED DECISION MAKING INCLUDE: EKG/LABS PREVIOUS OUTSIDE RECORDS REVIEWED: OLD ER VISITS. RISK OF COMPLICATION AND/OR MORBIDITY OR MORTALITY OF PATIENT MANAGEMENT: NONE MEDICATIONS-PER MEDICATION RECONCILIATION NEED FOR HOSPITALIZATION: PATIENT DOES NOT MEET CRITERIA FOR HOSPITALIZATION. NONE NEED FOR EMERGENCY MAJOR/MINOR SURGERY: NO THERE ARE NO SOCIAL CONCERNS WITH THIS PATIENT. PRESCRIPTION DRUG MANAGEMENT NONE PRESCRIPTIONS WILL INCLUDE SYMPTOMATIC CARE PATIENT'S PRIOR EXTERNAL MEDICAL RECORDS FROM OTHER ER VISITS WERE REVIEWED BY ME INDICATED. PRIOR TESTING AND RESULTS FROM PREVIOUS VISITS WERE REVIEWED. PRIOR TESTS WERE TAKEN INTO ACCOUNT WITH MEDICAL DECISION MAKING AND RESOURCE UTILIZATION, INDEPENDENT HISTORIAN/HISTORIANS WERE USED TO OBTAIN COMPLETE MEDICAL HISTORY. I INDEPENDENTLY INTERPRETED THE TEST THAT WERE PERFORMED, RESULTS WERE REVIEWED BY ME AND CONSIDERED FINDINGS ON RADIOLOGY IF ORDERED. MEDICAL MANAGEMENT AND EXAMINATION INTERPRETATION DISCUSSIONS WERE HAD BY ME WITH OTHER QUALIFIED HEALTHCARE PROFESSIONALS INDICATED FOR THE PATIENT'S CARE. DX & DISP Disposition: Discharge Departure Impression: Primary Impression: Chest pain Additional Impression: Panic attack Condition: Stable Additional Instructions: FOLLOW-UP WITH PRIMARY CARE PROVIDER IN 1 TO 2 DAYS. TAKE MEDICATIONS DIRECTED HERE IN THE EMERGENCY ROOM. OKAY TO CONTINUE HOME MEDICATIONS UNLESS OTHERWISE DISCUSSED DURING YOUR VISIT IN THE EMERGENCY ROOM TODAY. RETURN TO YOUR NEAREST EMERGENCY ROOM IF SYMPTOMS WORSEN OR IF THERE IS NO IMPROVEMENT. CALL 911 IF YOU NEED IMMEDIATE ASSISTANCE. TAKE TYLENOL OR MOTRIN [id number] NEEDED AND IF NO CONTRAINDICATIONS ARE PRESENT. INCREASE ORAL HYDRATION. A WOUND CULTURE OR URINE CULTURE WAS ORDERED HERE IN THE EMERGENCY ROOM DEPARTMENT PLEASE FOLLOW-UP WITH PRIMARY CARE PROVIDER AND ADVISE THEM TO GET REPEAT PORTS FROM OUR FACILITY. IF YOU HAD ANY ADAN WRAP/SPLINTS THAT WERE APPLIED HERE, PLEASE DO NOT REMOVE THEM UNTIL YOU SEE YOUR PRIMARY CARE OR SPECIALTY. DIET AND ACTIVITY TOLERATED. FOLLOW UP WITH THE YOUR PRIMARY CARE DOCTOR TOMORROW IN 1-2 DAYS FOR MANAGEMENT. Referrals: Philly YANES MD (PCP) Time of Disposition: 00:51 I have reviewed the case, and I agree with, Diagnosis and Plan HELENA BRENNER Jul 16, 2025 22:44
[2025-07-16 23:08] LABS: IMMATURE GRANULOCYTE ABSOLUTE 0.01 K/uL (0-1); NUCLEATED RED BLOOD CELLS 0.0 % (0.0-0.19); PLATELET COUNT (AUTO) 188 K/uL (130-400); RED BLOOD CELL COUNT(AUTO) 4.11 MIL/uL (4.00-5.50); RED CELL DISTRIBUTION WIDTH 12.2 % (11.0-15.5); WHITE BLOOD COUNT (AUTO) 8.3 K/uL (4.8-10.8)
[2025-07-17 00:06] LABS: CREATININE 0.5 mg/dL (0.5-1.0); GLOMERULAR FILTR. RATE CALC 133.0 mL/min (>90); GLUCOSE,RANDOM 94.0 mg/dL (70-105); SODIUM SERUM 139.0 mmol/L (136-145); UREA NITROGEN, BLOOD 18.0 mg/dL (7-18)
[2025-07-17 00:41] LABS: APPEARANCE,URINE CLEAR (CLEAR); GLUCOSE, URINE (UA) NEGATIVE (NEGATIVE); LEUKOCYTE ESTERASE ,URINE NEGATIVE Leu/uL (NEGATIVE); NITRATE,URINE NEGATIVE (NEGATIVE); OCCULT BLOOD,URINE NEGATIVE (NEGATIVE)
[2025-07-17 00:43] LABS: ADD UA MICROSCOPIC NO
[2025-07-17 00:44] LABS: HCG,QUALITATIVE URINE NEGATIVE (NEGATIVE)
[2025-07-17 01:04] VITALS: BP 123/71; PULSE 75; RESP 18; TEMP 98.6; O2SAT 99
--- NOTE | 2025-07-17 07:19 | EKG ---
[facility] Test Date: 2025-07-16 Test Time: 22:41:58 Pat Name: MATILDE DURAN Department: [facility] Room: Gender: F Clinical Assessment Manager: [id number] : 2000 Requested By: HELENA BRENNER Order Number: [id number] Reading MD: Juanjo Burt Measurements Intervals [place] Rate: 71 P: 39 [place]: 155 QRS: 83 QRSD: 84 T: 80 QT: 376 QTc: 410 Interpretive Statements Sinus rhythm Compared to ECG 06/01/2025 16:16:20 No significant changes Electronically Signed On 07-17-2025 19:22:23 FIELD MARKETING MANAGER by Juanjo Burt Please click the below link to view image of tracing.
== END 2025-07-17 01:05 | disposition home or self-care (01) ==
LOC: EDH 22:31
DX: F41.0 Panic disorder [episodic paroxysmal anxiety] (principal); R07.89 Other chest pain; E11.9 Type 2 diabetes mellitus without complications; E78.00 Pure hypercholesterolemia, unspecified; J45.909 Unspecified asthma, uncomplicated; Z79.52 Long term (current) use of systemic steroids
CPT/HCPCS: 36415; 80048; 81003; 81025; 84484; 85025; 93005; 99284

== ENCOUNTER 2025-07-27 01:03 | Emergency (ER) | payer MEDICAID ==
[~2025-07-27] VITALS: Ht 154.9 cm; Wt 65.8 kg
[2025-07-27 01:25] LABS: IMMATURE GRANULOCYTE ABSOLUTE 0.02 K/uL (0-1); NUCLEATED RED BLOOD CELLS 0.0 % (0.0-0.19); PLATELET COUNT (AUTO) 193 K/uL (130-400); RED BLOOD CELL COUNT(AUTO) 4.53 MIL/uL (4.00-5.50); RED CELL DISTRIBUTION WIDTH 12.3 % (11.0-15.5); WHITE BLOOD COUNT (AUTO) 12.7 K/uL (4.8-10.8)
[2025-07-27 01:27] LABS: APPEARANCE,URINE CLEAR (CLEAR); GLUCOSE, URINE (UA) NEGATIVE (NEGATIVE); LEUKOCYTE ESTERASE ,URINE 25 Leu/uL (NEGATIVE); NITRATE,URINE NEGATIVE (NEGATIVE); OCCULT BLOOD,URINE LARGE (NEGATIVE)
[2025-07-27 01:31] LABS: ADD UA MICROSCOPIC YES; HCG,QUALITATIVE URINE NEGATIVE (NEGATIVE)
[2025-07-27 01:41] LABS: CREATININE 0.6 mg/dL (0.5-1.0); GLOMERULAR FILTR. RATE CALC 128.0 mL/min (>90); GLUCOSE,RANDOM 93.0 mg/dL (70-105); SODIUM SERUM 141.0 mmol/L (136-145); UREA NITROGEN, BLOOD 14.0 mg/dL (7-18)
--- NOTE | 2025-07-27 01:43 | ERN ---
ED Note History of Present Illness Stated Complaint: EPIGASTRIC PAIN, N/V Chief Complaint: Abdominal Pain Time Seen by MD: 01:20 Dictation: This is a 25-year-old female who presented to the emergency room with complaints of epigastric pain nausea vomitings and chills. She stated that 15 minutes prior to presentation she began experiencing this and she had family reunion and Thanksgiving dinner and she drank 2 beers. She is 3 months . No hematemesis or melena no diarrhea. No fever. Temperature 98.9 pulse 121 respiratory rate 20 blood pressure 155/86 with a pulse oximetry of 100% on room air Chronic medical problems include asthma, diabetes mellitus type 2, increased cholesterol and history of preeclampsia Allergies: Coded Allergies: No Known Allergies (Unverified Allergy, Unknown, 07/24/20) Home Meds Active Scripts Nitrofurantoin Monohyd/M-Cryst (Macrobid 100 mg Capsule) 100 Mg Capsule, 1 CAP PO BID for 7 Days, #14 CAP 0 Refills Prov:AUSTIN EDUARDO MD 07/27/25 Naproxen (Naproxen) 250 Mg Tablet, 1 TAB PO BID for pain for 15 Days, #30 TAB 0 Refills Prov:SHAQ VINCENT MD 06/01/25 Azithromycin (Zithromax) 250 Mg Tablet, 250 MG PO AD for 5 Days, #6 TAB Take 2 250 mg tablets on day 1, then take 1 250mg tablets daily for 4 days Prov:YANI BONILLA [employer] 03/18/25 Albuterol Sulfate (Albuterol Sulfate) 2.5 Mg/3 Ml (0.083 %) Vial.neb, 1 VIAL NEB Q4HPRN PRN for wheezing for 60 Days, #150 ML 0 Refills Prov:SARAH APPIAH MD 07/23/24 Prednisone (Prednisone) 5 Mg Tablet, 40 MG PO DAILY for 5 Days, #5 TAB Prov:SARAH APPIAH MD 07/23/24 Albuterol Sulfate (Ventolin Hfa/Proventil Hfa/Proair Hfa) 90 Mcg/Puff Puff, 1-2 PUFF IH Q4H PRN for SHORTNESS OF BREATH for 5 Days, #1 INH 0 Refills PHARMACY TO DISPENSE 1 INHALER FOR USE Prov:TREVOR LAGUNA MD 08/09/21 Cefuroxime Axetil (Cefuroxime) 500 Mg Tablet, 500 MG PO BID for 10 Days, #20 TAB 0 Refills Prov:MICHELLE MARTIN MD 03/31/21 Ondansetron (Ondansetron Odt) 4 Mg Tab.rapdis, 4 MG PO Q6HPRN, #20 TAB 0 Refills Prov:DILSHAD YUSUF MD 01/31/21 Metoclopramide HCl (Reglan) 10 Mg Tablet, 10 MG PO TIDP, #20 TAB 0 Refills Prov:DILSHAD YUSUF MD 01/30/21 Pantoprazole Sodium (Protonix) 40 Mg Tablet.dr, 40 MG PO DAILYBKFST, #20 TAB 0 Refills Prov:DILSHAD YUSUF MD 01/30/21 Ondansetron (Ondansetron Odt) 4 Mg Tab.rapdis, 4 MG PO Q6HPRN, #20 TAB 0 Refills Prov:DILSHAD YUSUF MD 01/30/21 Dicyclomine HCl (Bentyl) 20 Mg Tab, 20 MG PO Q6HPRN, #20 TAB 0 Refills Prov:DILSHAD YUSUF MD 01/30/21 Past Medical History Past Medical History: Asthma, Diabetes-Type II, High Cholesterol, Other Additional Past Medical Hx: PRECLAMPSIA Surgical History: Surgical History Other: Family History: Negative Social History: ETOH, Negative, Other : 3 Para: 3 RN Note Reviewed/Agreed w/PFSH: Yes Review of System Dictation Constitutional: Negative for fever,chills, and weight loss Eyes: Negative for injury, pain,redness, and discharge ENT: Negative for injury,pain or swelling Cardiovascular: Negative for chest pain, palpitations, and edema Respiratory: Negative for shortness of breath, cough, and wheezing, Abdomen/GI: Positive for abdominal pain, nausea, vomiting, denied diarrhea, and constipation positive for alcohol ingestion Back: Negative for injury and pain : Negative for injury, bleeding and discharge MS/Extremity: Negative for injury and deformity Skin: Negative for rash, and discoloration Neuro: Negative for headache, weakness, numbness, tingling, and seizure Psych: Negative for suicide ideation, homicidal ideation, and hallucinations Initial Vital Sign VS Vital Signs Date Time Temp Pulse Resp B/P (MAP) Pulse Ox O2 Delivery O2 Flow Rate FiO2 07/27/25 01:05 99.0 121 20 155/86 100 Room Air 07/27/25 01:27 0 21 Physical Exam Dictation General: awake, alert, NAD Head/Face: Normocephalic, atraumatic Eyes: PERRL, EOMI, vision at baseline ENT: oral cavity clear, TMs clear, no signs of infection Neck: Trachea midline, supple, no nuchal rigidity Cardiovascular: RRR, normal S1/S2, No MRGs, no JVD Respiratory: CTAB, no respiratory distress, No rales or wheezes Abdomen: Soft, non-tender, non-distended, normal bowel sounds, no guarding or rebound. Skin: Warm, dry, normal turgor, no rash MS/Extremity: Pulses equal, no cyanosis, neurovascular intact, FROM Neuro: COAx4, GCS 15, strength 5/5, CN 2-12 intact, normal cerebellar exam, normal gait, Psych: Normal behavior, mood, and affect normal Extremities-trace edema without any palpable cords, Homans sign is negative Results (Laboratory/Radiology) Laboratory/Radiology Laboratory Tests Test 07/27/25 01:22 White Blood Count 12.7 K/uL (4.8-10.8) H Red Blood Count 4.53 MIL/uL (4.00-5.50) Hemoglobin 13.9 g/dL (12.0-16.0) Hematocrit 42.1 % (36-48) Mean Corpuscular Volume 92.9 fL (79-99) Mean Corpuscular Hemoglobin 30.7 pg (27.0-33.0) Mean Corpuscular Hemoglobin Concent 33.0 g/dL (32.0-36.0) Red Cell Distribution Width 12.3 % (11.0-15.5) Platelet Count 193 K/uL (130-400) Mean Platelet Volume 12.0 fL (7.5-10.5) H Immature Granulocyte % (Auto) 0.2 % (0-1) Neutrophils (%) (Auto) 52.2 % (40.0-77.0) Lymphocytes (%) (Auto) 38.1 % (21.0-51.0) Monocytes (%) (Auto) 7.4 % (3.0-13.0) Eosinophils (%) (Auto) 1.7 % (0.0-8.0) Basophils (%) (Auto) 0.4 % (0.0-5.0) Neutrophils # (Auto) 6.7 K/uL (1.8-7.7) Lymphocytes # (Auto) 4.8 K/uL (1.0-4.8) Monocytes # (Auto) 0.9 K/uL (0.1-1.0) Eosinophils # (Auto) 0.22 K/uL (0.00-0.70) Basophils # (Auto) 0.05 K/uL (0.00-0.20) Absolute Immature Granulocyte (auto 0.02 K/uL (0-1) Nucleated Red Blood Cells 0.0 % (0.0-0.19) Urine Color COLORLESS (YELLOW) Urine Appearance CLEAR (CLEAR) Urine pH 6.0 (5.0-8.0) Urine Specific [address] 1.002 (1.001-1.031) Urine Protein NEGATIVE mg/dL (NEGATIVE) Urine Glucose (UA) NEGATIVE mg/dL (NEGATIVE) Urine Ketones NEGATIVE mg/dL (NEGATIVE) Urine Occult Blood LARGE (NEGATIVE) H Urine Nitrate NEGATIVE (NEGATIVE) Urine Bilirubin NEGATIVE mg/dL (NEGATIVE) Urine Urobilinogen 0.2 mg/dL (0.2-1.0) Urine Leukocyte Esterase 25 [place]/uL (NEGATIVE) H Urine RBC 11-25 /HPF (0-1) H Urine WBC 2-5 /HPF (0-1) H Urine Bacteria Moderate /HPF (None Seen) H Urine HCG, Qualitative NEGATIVE (NEGATIVE) Sodium Level 141 mmol/L (136-145) Potassium Level 3.3 mmol/L (3.5-5.1) L Chloride Level 104 mmol/L (101-111) Carbon Dioxide Level 25 mmol/L (21-32) Blood Urea Nitrogen 14 mg/dL (7-18) Creatinine 0.6 mg/dL (0.5-1.0) Glomerular Filtration Rate Calc 128 mL/min (>90) Random Glucose 93 mg/dL (70-105) Total Calcium 9.3 mg/dL (8.5-10.1) Lipase 45 U/L (16-77) Serum Alcohol 18 mg/dL (0-10) H Labs Reviewed?: Yes ED Course ED Course Orders Procedure Category Date Status Time Vital Signs Per CPOE 07/27/25 Transmitted Routine 01:11 Saline Lock Iv CPOE 07/27/25 Transmitted 01:11 Cbc With Differential LAB 07/27/25 Complete 01:11 Lipase LAB 07/27/25 Complete 01:11 Urinalysis Profile LAB 07/27/25 Complete 01:11 Basic Metabolic Panel LAB 07/27/25 Complete 01:11 ,Urine Test LAB 07/27/25 Complete 01:11 Alcohol, Blood LAB 07/27/25 Complete 01:13 Ondansetron 4mg Inj PHA 07/27/25 Complete (Zofran 4mg Inj) 01:30 Ondansetron 4mg Inj PHA 07/27/25 Complete (Zofran 4mg Inj) 01:21 0.9%Nacl 1000ml (Ns PHA 07/27/25 Complete 1000ml) 02:00 Ketorolac PHA 07/27/25 Complete Tromethamine 15mg/Ml 02:00 Ondansetron 4mg Inj PHA 07/27/25 Complete (Zofran 4mg Inj) 02:00 Culture Urine CED 07/27/25 Complete 01:43 Ceftriaxone 1g Vial PHA 07/27/25 Complete (Rocephine 1g Inj) 02:30 Current Medications Medications (Trade) Dose Ordered Sig/Lakeisha Route PRN Reason Start Time Stop Time Status Last Admin Dose Admin Ceftriaxone Sodium (ROCEphine 1G INJ) 1 gm ONCE ONCE IVPB 07/27/25 02:30 07/27/25 02:41 DC 07/27/25 02:59 Ketorolac Tromethamine (toRADol) 15 mg ONCE ONCE IV 07/27/25 02:00 07/27/25 02:01 DC 07/27/25 01:55 Ondansetron HCl (zoFRAN 4MG INJ) 4 mg ONCE ONCE IVP 07/27/25 01:30 07/27/25 01:31 DC 07/27/25 01:23 Ondansetron HCl (zoFRAN 4MG INJ) 4 mg ONCE ONCE IVP 07/27/25 02:00 07/27/25 02:01 DC Ondansetron HCl (zoFRAN 4MG INJ) 4 mg STK-MED ONCE .ROUTE 07/27/25 01:21 07/27/25 01:21 DC Sodium Chloride 1,000 ml @ 0 mls/hr ONCE ONCE IV 07/27/25 02:00 07/27/25 02:01 DC 07/27/25 01:55 Vital Signs Date Time Temp Pulse Resp B/P (MAP) Pulse Ox O2 Delivery O2 Flow Rate FiO2 07/27/25 03:46 98.2 82 18 126/78 100 Room Air* 0 21 07/27/25 01:27 98.8 112 18 132/85 99 Room Air* 0 21 07/27/25 01:05 99.0 121 20 155/86 100 Room Air Medical Decision Making MDM Differential diagnosis: Gastritis, esophagitis, alcohol intoxication, pancreatitis, cholecystitis This is a 25-year-old female who presented to the emergency room with complaints of epigastric pain nausea vomitings and chills. She stated that 15 minutes prior to presentation she began experiencing this and she had family reunion and Thanksgiving dinner and she drank 2 beers. She is 3 months . No hematemesis or melena no diarrhea. No fever. Temperature 98.9 pulse 121 respiratory rate 20 blood pressure 155/86 with a pulse oximetry of 100% on room air Chronic medical problems include asthma, diabetes mellitus type 2, increased cholesterol and history of preeclampsia Note patient was seen here on 07/16/2025. 1:40 a.m. labs reviewed white count 12.7. 2:30 a.m. BNP 7 showed a potassium of 3.3 lipase 45. Urine test is negative and urinalysis showed positive leuko esterase at 25 and moderate bacteria I updated the patient and spouse on available findings we will give an empiric antibiotic. Symptomatic management Rationale: Tests considered and ordered secondary to shared decision making include: Previous outside records reviewed: Old ER visits. Risk of complication and/or morbidity or mortality of patient management: None Medications-Per medication reconciliation Need for hospitalization: Patient does not meet criteria for hospitalization. Need for emergency major/minor surgery: No There are no social concerns with this patient. Prescription drug management Prescriptions will include symptomatic care Patient's prior external medical records from other ER visits were reviewed by me as indicated. Prior testing and results from previous visits were reviewed. Prior tests were taken into account with medical decision making and resource utilization, independent historian/historians were used to obtain complete medical history. I independently interpreted the test that were performed, results were reviewed by me and considered findings on radiology if ordered. Medical management and examination interpretation discussions were had by me with other qualified healthcare professionals as indicated for the patient's care. Problem List Problem List: (1) Nausea & vomiting (2) Alcohol ingestion (3) UTI (urinary tract infection) DX & DISP Disposition: Discharge Departure Impression: Primary Impression: Nausea & vomiting Additional Impressions: Alcohol ingestion, UTI (urinary tract infection) Condition: Stable Scripts Nitrofurantoin Monohyd/M-Cryst (Macrobid 100 mg Capsule) 100 Mg Capsule 1 CAP PO BID for 7 Days, #14 CAP 0 Refills Prov: AUSTIN EDUARDO MD 07/27/25 Additional Instructions: Patient and the caregiver have been informed of all the diagnostic tests and the imaging conducted during the today's visit to the emergency room and has verbalized understanding of the results I have personally reviewed and interpreted all diagnostic exams performed here in the ER today as well as the vital signs documented by the nursing staff. The patient is now being discharged to home and should follow up with the primary care physician or the specialist as directed by the ER staff. Follow-up with primary care provider in 1 to 2 days. Take medications as directed here in the emergency room. Okay to continue home medications unless otherwise discussed during your visit in the emergency room today. Return to your nearest emergency room if symptoms worsen or if there is no improvement. Call 911 if you need immediate assistance. Take Tylenol or Motrin [id number] as needed and if no contraindications are present. Increase oral hydration. A wound culture or urine culture was ordered here in the emergency room department please follow-up with primary care provider and advise them to get repeat ports from our facility. If you had any Arnol wrap/splints that were applied here, please do not remove them until you see your primary care or specialty. Counseled her extensively on alcohol abstinence lifestyle modifications especially with being 3 months . She verbalized understanding. Referrals: Philly YANES MD (PCP) AUSTIN EDUARDO MD Jul 27, 2025 01:43
[2025-07-27] MEDS: 0.9%NACL 1000ML 1,000 ML IV ONE (01:55)
[2025-07-27] MEDS ORDERED: NITR100C4 PO (03:35)
[2025-07-27 03:46] VITALS: BP 126/78; PULSE 82; RESP 18; TEMP 98.3; O2SAT 100
== END 2025-07-27 03:47 | disposition home or self-care (01) ==
LOC: EDH 01:03
DX: N39.0 Urinary tract infection, site not specified (principal); R11.2 Nausea with vomiting, unspecified; F10.10 Alcohol abuse, uncomplicated; J45.909 Unspecified asthma, uncomplicated; E78.00 Pure hypercholesterolemia, unspecified; E11.9 Type 2 diabetes mellitus without complications; Z79.52 Long term (current) use of systemic steroids; Z98.890 Other specified postprocedural states
CPT/HCPCS: 99284; 96365; 96375; 80048; 83690; 85025; 87086; 81001; 81025; 36415; J1885; J7030; J0696; J2405

== ENCOUNTER 2025-08-19 12:44 | Emergency (ER) | payer MEDICAID ==
[~2025-08-19] VITALS: Ht 154.9 cm; Wt 65.8 kg
[~2025-08-19 12:44] MED LIST changes: +NITR100C4 PO
[2025-08-19 12:46] VITALS: BP 109/66; PULSE 88; RESP 16; TEMP 99
[2025-08-19 13:36] LABS: IMMATURE GRANULOCYTE ABSOLUTE 0.03 K/uL (0-1); NUCLEATED RED BLOOD CELLS 0.0 % (0.0-0.19); PLATELET COUNT (AUTO) 185 K/uL (130-400); RED BLOOD CELL COUNT(AUTO) 4.67 MIL/uL (4.00-5.50); RED CELL DISTRIBUTION WIDTH 11.9 % (11.0-15.5); WHITE BLOOD COUNT (AUTO) 9.3 K/uL (4.8-10.8)
[2025-08-19 13:42] LABS: CREATININE 0.5 mg/dL (0.5-1.0); GLOMERULAR FILTR. RATE CALC 133.0 mL/min (>90); GLUCOSE,RANDOM 99.0 mg/dL (70-105); SODIUM SERUM 136.0 mmol/L (136-145); UREA NITROGEN, BLOOD 9.0 mg/dL (7-18)
[2025-08-19 13:47] LABS: CREATINE KINASE, TOTAL 66.0 U/L (21-232)
--- NOTE | 2025-08-19 14:30 | NUR ---
PT CALLED OUT SEVERAL BY RADIOLOGY,LAB, AND PRIMARY NURSE CINDY ALMANZA. NO ANSWER.
--- NOTE | 2025-08-19 15:06 | NUR ---
PT CALLED OUT FINAL TIME AND NO ANSWER. ER PROVIDER YANI BONILLA NP MADE AWARE THAT PT ELOPED. NO IV IN PLACE.
--- NOTE | 2025-08-19 19:45 | EKG ---
[facility] Test Date: 2025-08-19 Test Time: 12:12:51 Pat Name: MATILDE DURAN Department: [facility] Room: Gender: F Ski Topper: [id number] : 2000 Requested By: LLOYD REYNOLDS Order Number: [id number] Reading MD: Kristian Pisano Measurements Intervals Melvin Rate: 98 P: 43 MI: 151 QRS: 83 QRSD: 86 T: 65 QT: 339 QTc: 432 Interpretive Statements Sinus rhythm Compared to ECG 07/16/2025 22:41:58 No significant changes Electronically Signed On 08-19-2025 21:53:06 COMMUNITY EDUCATION COORDINATOR by Kristian Pisano Please click the below link to view image of tracing.
--- NOTE | 2025-08-19 19:55 | ERN ---
ED Note History of Present Illness Stated Complaint: CHEST PAIN Chief Complaint: Chest Pain Time Seen by MD: 13:10 Time Seen by Midlevel: 13:10 Dictation: The patient is a 25 year old female with no significant past medical history who presents to the emergency department with complaints of chest pain onset 30 minutes prior to arrival. Patient reports that she got into an argument with another person with the symptoms started. Reports she also had nausea but that has resolved. Patient denies any upper respiratory symptoms Allergies: Coded Allergies: No Known Allergies (Unverified Allergy, Unknown, 07/24/20) Home Meds Active Scripts Nitrofurantoin Monohyd/M-Cryst (Macrobid 100 mg Capsule) 100 Mg Capsule, 1 CAP PO BID for 7 Days, #14 CAP 0 Refills Prov:AUSTIN EDUARDO MD 07/27/25 Naproxen (Naproxen) 250 Mg Tablet, 1 TAB PO BID for pain for 15 Days, #30 TAB 0 Refills Prov:SHAQ VINCENT MD 06/01/25 Azithromycin (Zithromax) 250 Mg Tablet, 250 MG PO AD for 5 Days, #6 TAB Take 2 250 mg tablets on day 1, then take 1 250mg tablets daily for 4 days Prov:YANI BONILLA [employer] 03/18/25 Albuterol Sulfate (Albuterol Sulfate) 2.5 Mg/3 Ml (0.083 %) Vial.neb, 1 VIAL NEB Q4HPRN PRN for wheezing for 60 Days, #150 ML 0 Refills Prov:SARAH APPIAH MD 07/23/24 Prednisone (Prednisone) 5 Mg Tablet, 40 MG PO DAILY for 5 Days, #5 TAB Prov:SARAH APPIAH MD 07/23/24 Albuterol Sulfate (Ventolin Hfa/Proventil Hfa/Proair Hfa) 90 Mcg/Puff Puff, 1-2 PUFF IH Q4H PRN for SHORTNESS OF BREATH for 5 Days, #1 INH 0 Refills PHARMACY TO DISPENSE 1 INHALER FOR USE Prov:TREVOR LAGUNA MD 08/09/21 Cefuroxime Axetil (Cefuroxime) 500 Mg Tablet, 500 MG PO BID for 10 Days, #20 TAB 0 Refills Prov:MICHELLE MARTIN MD 03/31/21 Ondansetron (Ondansetron Odt) 4 Mg Tab.rapdis, 4 MG PO Q6HPRN, #20 TAB 0 Refills Prov:DILSHAD YUSUF MD 01/31/21 Metoclopramide HCl (Reglan) 10 Mg Tablet, 10 MG PO TIDP, #20 TAB 0 Refills Prov:DILSHAD YUSUF MD 01/30/21 Pantoprazole Sodium (Protonix) 40 Mg Tablet.dr, 40 MG PO DAILYBKFST, #20 TAB 0 Refills Prov:DILSHAD YUSUF MD 01/30/21 Ondansetron (Ondansetron Odt) 4 Mg Tab.rapdis, 4 MG PO Q6HPRN, #20 TAB 0 Refills Prov:DILSHAD YUSUF MD 01/30/21 Dicyclomine HCl (Bentyl) 20 Mg Tab, 20 MG PO Q6HPRN, #20 TAB 0 Refills Prov:DILSHAD YUSUF MD 01/30/21 Past Medical History Past Medical History: No Pertinent History Additional Past Medical Hx: PRECLAMPSIA Surgical History: Surgical History Other: Family History: Negative Social History: ETOH, Negative, Other LMP: Jul 25, 2025 : 3 Para: 3 Aborts: 0 RN Note Reviewed/Agreed w/PFSH: Yes Review of System Dictation Constitutional: Negative for fever,chills, and weight loss Eyes: Negative for injury, pain,redness, and discharge ENT: Negative for injury,pain or swelling Cardiovascular: Negative for palpitations, and edema positive for chest pain Respiratory: Negative for shortness of breath, cough, and wheezing, Abdomen/GI: Negative for abdominal pain, vomiting, diarrhea, and constipation positive for nausea Back: Negative for injury and pain : Negative for injury, bleeding and discharge MS/Extremity: Negative for injury and deformity Skin: Negative for rash, and discoloration Neuro: Negative for headache, weakness, numbness, tingling, and seizure Psych: Negative for suicide ideation, homicidal ideation, and hallucinations Initial Vital Sign VS Vital Signs Date Time Temp Pulse Resp B/P (MAP) Pulse Ox O2 Delivery O2 Flow Rate FiO2 08/19/25 12:46 99.0 88 16 109/66 97 Room Air 0 Physical Exam Dictation Vital Signs reviewed General Appearance: Alert, oriented x 3, no acute distress, well developed, nourished. Head and Face: non-traumatic. Eyes: PERRL, pink conjunctivas, eyelid no trauma, anterior chamber with arcus senilis. Ears: Pinnas intact and no signs of trauma or erythema ear canals clear and no discharge TM no erythema Nose: No discharge, no bleeding. Oropharynx: Mouth normal, tongue pink. pharynx clear,no erythema, tonsils no exudates, no abscesses noted, mucous membrane moist Neck: Supple, non-tender, no thyromegaly, no masses, no JVD, no bruits Breast:Deferred Chest:No tenderness, no crepitus, no paradoxical movement, no retractions Lungs:Clear, well-ventilated, symmetric, no rales, no wheezing, no rhonchi, no stridor, good breath sounds bilaterally Heart: Regular rate, regular rhythm, no murmur, no gallops Vascular: no peripheral edema, Abdomen: Soft, positive bowel sounds, nondistended, no guarding, nontender, no rebound, no masses no hepatomegaly, no splenomegaly, no Bowers's sign, no hernias. Rectal: Deferred Genital: Deferred Neurological: Normal speech, motor function intact, sensory function intact Musculoskeletal: Neck nontender, full range of motion, back nontender, full range of motion, Extremities: nontender, full range of motion Skin: Color pink, dry, no turgor, no rash, no lacerations, no abrasions, no contusions. Lymphatic: Deferred Results (Laboratory/Radiology) Laboratory/Radiology Laboratory Tests Test 08/19/25 13:25 White Blood Count 9.3 K/uL (4.8-10.8) Red Blood Count 4.67 MIL/uL (4.00-5.50) Hemoglobin 14.1 g/dL (12.0-16.0) Hematocrit 41.9 % (36-48) Mean Corpuscular Volume 89.7 fL (79-99) Mean Corpuscular Hemoglobin 30.2 pg (27.0-33.0) Mean Corpuscular Hemoglobin Concent 33.7 g/dL (32.0-36.0) Red Cell Distribution Width 11.9 % (11.0-15.5) Platelet Count 185 K/uL (130-400) Mean Platelet Volume 12.1 fL (7.5-10.5) H Immature Granulocyte % (Auto) 0.3 % (0-1) Neutrophils (%) (Auto) 72.0 % (40.0-77.0) Lymphocytes (%) (Auto) 20.6 % (21.0-51.0) L Monocytes (%) (Auto) 6.3 % (3.0-13.0) Eosinophils (%) (Auto) 0.6 % (0.0-8.0) Basophils (%) (Auto) 0.2 % (0.0-5.0) Neutrophils # (Auto) 6.7 K/uL (1.8-7.7) Lymphocytes # (Auto) 1.9 K/uL (1.0-4.8) Monocytes # (Auto) 0.6 K/uL (0.1-1.0) Eosinophils # (Auto) 0.06 K/uL (0.00-0.70) Basophils # (Auto) 0.02 K/uL (0.00-0.20) Absolute Immature Granulocyte (auto 0.03 K/uL (0-1) Nucleated Red Blood Cells 0.0 % (0.0-0.19) Sodium Level 136 mmol/L (136-145) Potassium Level 3.8 mmol/L (3.5-5.1) Chloride Level 103 mmol/L (101-111) Carbon Dioxide Level 25 mmol/L (21-32) Blood Urea Nitrogen 9 mg/dL (7-18) Creatinine 0.5 mg/dL (0.5-1.0) Glomerular Filtration Rate Calc 133 mL/min (>90) Random Glucose 99 mg/dL (70-105) Total Calcium 9.4 mg/dL (8.5-10.1) Total Creatine Kinase 66 U/L (21-232) # Troponin I High Sensitivity < 4 ng/L (4-50) L Serum Test, Qualitative NEGATIVE (NEGATIVE) Labs Reviewed?: Yes EKG: (+) rhythm (Sinus rhythm) EKG Comment: Date:08/19/2025 Time:1212 Ventricular rate:98 ME interval:151 QRS duration:86 QT/QTc:339/432 EKG interpretation: Sinus rhythm Reviewed by ED Attending no STEMI ED Course ED Course Orders Procedure Category Date Status Time 12 Lead Ekg Tracing- EKG 12/21/25 Complete Technical 12:52 Cbc With Differential LAB 08/19/25 Complete 13:15 Creatine Kinase, Total LAB 08/19/25 Complete 13:15 Troponin I High LAB 08/19/25 Complete Sensitivity 13:15 Basic Metabolic Panel LAB 08/19/25 Complete 13:15 Testing, LAB 08/19/25 Complete Serum Hcg 13:15 Vital Signs Date Time Temp Pulse Resp B/P (MAP) Pulse Ox O2 Delivery O2 Flow Rate FiO2 08/19/25 12:46 99.0 88 16 109/66 97 Room Air 0 Medical Decision Making MDM The patient is a 25 year old female with no significant past medical history who presents to the emergency department with complaints of chest pain onset 30 minutes prior to arrival. Patient reports that she got into an argument with another person with the symptoms started. Reports she also had nausea but that has resolved. Patient denies any upper respiratory symptoms Differential diagnosis: Costochondritis, ACS, pneumothorax, anxiety I was informed by the nurse that patient eloped from ER. Patient did not notified anyone. DX & DISP Disposition: Other(Comment) (Eloped) Departure Condition: Stable Referrals: Philly YANES MD (PCP) I have reviewed the case, and I agree with, Diagnosis and Plan YANI BONILLA [facility] Aug 19, 2025 19:55
== END 2025-08-19 15:08 | disposition left against medical advice (07) ==
LOC: EDH 12:44
DX: R07.89 Other chest pain (principal); Z53.29 Procedure and treatment not carried out because of patient's decision for other reasons; Z79.52 Long term (current) use of systemic steroids
CPT/HCPCS: 36415; 80048; 82550; 84484; 84703; 85025; 93005; 99284